=== PATIENT | female | born 1985 | race Caucasian/White ===

== ENCOUNTER → 2016-05-11 | Outpatient (CLI) | payer MEDICAID ==
--- NOTE | 2016-05-11 17:10 | US ---
Limited Pelvic Sonography (To Assess the Ovaries Only) Clinical History: 30-year-old female with a prior history of a ruptured right ovarian cyst, now prese nting for follow up. ICD-10 Diagnostic Code: N83.201. Technique: Endovaginal pelvic sonography of the ovaries was performed with color and spectral Doppler used. A cine clip was obtained through the right ovary. Comparison Study: Pelvic sonography, dated April 23, 2016. Findings: The right ovary measures 4.4 x 3.1 x 4.7 cm, and contains a 4.0 x 2.9 x 3.6 cm rounded, ane choic simple cyst. This has developed since the previous pelvic sonogram, at which time there was a d ominant though apparently involuting 1.6 x 0.4 x 0.7 cm follicle. The left ovary measures 2.8 x 3.4 x 3.4 cm, and contains a 2.9 x 2.5 x 2.8 cm anechoic cyst which has also developed. The maintenance repairman ob tained arterial and venous flow of the right ovary with a resistive index of 0.45. There is no free f luid observed. Impression: There are bilateral benign-appearing dominant cysts now occupying the ovaries, measuring up to 4.0 cm in the right ovary and 2.9 cm in the left ovary. These findings have developed since Mar.
== END ==
LOC: FIMAGING 10:58
PROVIDERS: ATTEND Midwife
DX: N83.201 Unspecified ovarian cyst, right side (principal); N83.202 Unspecified ovarian cyst, left side

== ENCOUNTER 2016-05-15 16:49 | Emergency (ER) | payer MEDICAID ==
[2016-05-15 17:00] VITALS: RESP 18; TEMP 98.1; O2SAT 95
[2016-05-15] MEDS ORDERED: ONDANSETRON 4 MG/2 ML VIAL IVP ONE (18:15)
[2016-05-15] MEDS ORDERED: HYDROmorphONE/DILAUDID 1 MG/ML SYR IVP ONE (18:15)
[2016-05-15] MEDS ORDERED: NS 1,000 ML IV ONE ×2 (18:15)
[2016-05-15 18:21] LABS: % IMMATURE GRANULYOCYTES 0.3 % (0.0-1.1); ABSOLUTE IMMATURE GRANULOCYTES 0.03 10^3/uL (0.00-0.10); ADD DIFF? NO; ADD MORPH? NO; ADD SCAN? NO; ATYPICAL LYMPHOCYTE FLAG 10 (0-99); FRAGMENT RBC FLAG 0 (0-99); HEMOGLOBIN 15.4 g/dL (12.6-16.3); LEFT SHIFT FLG 0 (0-99); LIPEMIA HEMOLYSIS FLAG 90 (0-99); MEAN CELL HEMOGLOBIN 31.8 pg (27.9-34.1); MEAN CELL HEMOGLOBIN CONCENTR. 34.2 g/dL (32.4-36.7); MEAN PLATELET VOLUME 9.2 fL (8.7-11.7); PLATELET CLUMPS FLAG 0 (0-99); PLATELET COUNT 247 10^3/uL (150-400); RED BLOOD CELL COUNT 4.84 10^6/uL (4.18-5.33); RED CELL DISTRIBUTION WIDTH 12.6 % (11.5-15.2)
[2016-05-15 18:35] LABS: ANION GAP 10 mEq/L (8-16); CALCIUM 9.5 mg/dL (8.5-10.4); CARBON DIOXIDE 25 mEq/l (22-31); CHLORIDE 104 mEq/L (97-110); CREATININE 0.8 mg/dL (0.6-1.0); GLOMERULAR FILTRATION RATE > 60; GLUCOSE 72 mg/dL (70-100); POTASSIUM 4.2 mEq/L (3.5-5.2); SODIUM 139 mEq/L (134-144)
--- NOTE | 2016-05-15 18:51 | EDPHY ---
H & P Stated Complaint: pelvic pain seen in [facility] for same/still painful Time Seen by Provider: 05/15/16 17:46 HPI/ROS: CHIEF COMPLAINT: Abdominal pain HISTORY OF PRESENT ILLNESS: 30 year old female presents to the emergency department complaining of lower bilateral abdominal cramping that started 4 days ago. Patient was seen for right lower abdominal pain last month and diagnosed with a ruptured ovarian cyst, 2 weeks later she was treated for urinary tract infection. Patient states last night her cramping got significantly worse with stabbing pains. She developed nausea and vomiting last night due to the pain. She denies urinary frequency, urgency or dysuria. Patient states that her IUD was moved 2 weeks ago. Patient denies vaginal discharge, she states she is not sexually active. REVIEW OF SYSTEMS: A comprehensive 10 point review of systems is otherwise negative aside from elements mentioned in the history of present illness. Source: Patient Exam Limitations: No limitations - Personal History LMP (Females 10-55): IUD In Place Current Tetanus/Diphtheria Vaccine: Yes Tetanus Vaccine Date: 2010 - Medical/Surgical History Hx Asthma: No Hx Chronic Respiratory Disease: No Hx Diabetes: No Hx Cardiac Disease: No Hx Renal Disease: No Hx Cirrhosis: No Hx Alcoholism: No Hx HIV/AIDS: No Hx Splenectomy or Spleen Trauma: No Other PMH: anxiety, bone marrow graft, tonsillectomy, ovarian cyst - Social History Smoking Status: Never smoked - Physical Exam Exam: Physical Exam Gen: Alert and Oriented, tearful HEENT: PERRL, moist mucous membranes NECK: no meningismus CV: regular rate and regular rhythm PULM: CTAB, no wheezes ABDOMEN: soft, diffuse lower abdominal tenderness to palpation, no guarding, no peritoneal signs, BS present BACK: No CVA tenderness NEURO: Neurologically grossly intact EXTREMITIES: normal appearing SKIN: no rash or break in skin on exposed skin PSYCH: answers questions appropriately. Constitutional: Initial Vital Signs Temperature (C) 36.7 C 05/15/16 16:58 Heart Rate 88 05/15/16 16:58 Respiratory Rate 18 05/15/16 16:58 Blood Pressure 115/65 05/15/16 16:58 O2 Sat (%) 95 05/15/16 16:58 O2 Delivery Mode Room Air Allergies/Adverse Reactions: acetaminophen [From Tylenol Cold M-S Severe Daytim] Allergy (Verified 04/03/16 20:35) amoxicillin [Amoxicillin] Allergy (Verified 04/03/16 20:35) aspirin [Aspirin] Allergy (Verified 04/03/16 20:35) dexchlorpheniramine [Dexchlorpheniramine] Allergy (Verified 04/03/16 20:35) dextromethorphan HBr [From Tylenol Cold M-S Severe Daytim] Allergy (Verified 10/12 20:35) diphenhydramine HCl [From Benadryl] Allergy (Verified 04/03/16 20:35) erythromycin base [Erythromycin Base] Allergy (Verified 04/03/16 20:35) guaifenesin [From Tylenol Cold M-S Severe Daytim] Allergy (Verified 04/03/16 20: 35) ibuprofen [From Advil] Allergy (Verified 04/03/16 20:35) mushroom Allergy (Verified 04/03/16 20:35) phenylephrine HCl [From Tylenol Cold M-S Severe Daytim] Allergy (Verified 20:35) pseudoephedrine Allergy (Verified 04/03/16 20:35) pseudoephedrine HCl [From Sudafed] Allergy (Verified 04/03/16 20:35) Sulfa (Sulfonamide Antibiotics) Allergy (Verified 04/03/16 20:35) METHSCOLOLAMINE Allergy (Uncoded 08/08/10 13:30) Home Medications: Medication Instructions Recorded CLONAZEPAM 04/03/16 Dicyclomine 04/23/16 Doxycycline Hyclate 100 mg PO BID #14 tab 04/23/16 Promethazine HCl 04/23/16 Dicyclomine 05/15/16 Ondansetron Odt [Zofran Odt] 4 mg PO Q6-8PRN PRN #8 tab 05/15/16 Oxycodone HCl [Roxicodone] 5 mg PO Q6-8PRN PRN #10 tablet 05/15/16 Medical Decision Making - Diagnostics Imaging: Pelvic ultrasound IMPRESSION: 1. Interval rupture of a left ovarian follicle cyst, with moderate associated peritoneal free fluid. 2. Persistent large simple right ovarian follicle cyst. 3. Low-lying intrauterine device. Results called to Alex Hoff PA-C, at 8:00 PM. Dictated By: Larry Salazar MD ED Course/Re-evaluation: IV established, CBC, chemistry panel, urinalysis and pelvic ultrasound ordered. Patient is given 1 mg of Dilaudid IV and 4 mg of Zofran for nausea. Patient has a normal CBC, normal chemistry panel. Urinalysis is unremarkable, she is not . Pelvic ultrasound shows a right ovarian cyst similar in size to 3 days ago and the left ovarian cyst that was 3 days ago seen is now gone and she has trace free fluid in her pelvis. Patient's pain is likely due to a ruptured ovarian cyst. I have recommended heating pad, rest. She has been discharged with a prescription for oxycodone and Zofran. She agrees to follow up with her OBGYN for re-evaluation. She is given return precautions for any fevers, pain that is not controlled, any new symptoms or concerns. Differential Diagnosis: Diagnosis considered but not limited to appendicitis, pelvic inflammatory disease, urinary tract infection, pyelonephritis, STD, ovarian cyst, ectopic - Data Points Laboratory Results: Laboratory Results 05/15/16 18:05 05/15/16 18:05 05/15/16 05/15/16 20:00 18:05 WBC 10.34 H 10^3/uL (3.80-9.50) RBC 4.84 10^6/uL (4.18-5.33) Hgb 15.4 g/dL (12.6-16.3) Hct 45.0 % (38.0-47.0) MCV 93.0 fL (81.5-99.8) MCH 31.8 pg (27.9-34.1) MCHC 34.2 g/dL (32.4-36.7) RDW 12.6 % (11.5-15.2) Plt Count 247 10^3/uL (150-400) MPV 9.2 fL (8.7-11.7) Neut % (Auto) 63.7 % (39.3-74.2) Lymph % (Auto) 28.0 % (15.0-45.0) [place] % (Auto) 5.5 % (4.5-13.0) Eos % (Auto) 1.8 % (0.6-7.6) Baso % (Auto) 0.7 % (0.3-1.7) Nucleat RBC Rel Count 0.0 % (0.0-0.2) Absolute Neuts (auto) 6.58 H 10^3/uL (1.70-6.50) Absolute Lymphs (auto) 2.90 10^3/uL (1.00-3.00) Absolute Monos (auto) 0.57 10^3/uL (0.30-0.80) Absolute Eos (auto) 0.19 10^3/uL (0.03-0.40) Absolute Basos (auto) 0.07 10^3/uL (0.02-0.10) Absolute Nucleated RBC 0.00 10^3/uL (0-0.01) Immature Gran % 0.3 % (0.0-1.1) Immature Gran # 0.03 10^3/uL (0.00-0.10) Sodium 139 mEq/L (134-144) Potassium 4.2 mEq/L (3.5-5.2) Chloride 104 mEq/L (97-110) Carbon Dioxide 25 mEq/l (22-31) Anion Gap 10 mEq/L (8-16) BUN 8 mg/dL (7-23) Creatinine 0.8 mg/dL (0.6-1.0) Estimated GFR > 60 Glucose 72 mg/dL (70-100) Calcium 9.5 mg/dL (8.5-10.4) Beta HCG, Qual NEGATIVE Urine Color YELLOW Urine Appearance CLEAR Urine pH 5.0 (5.0-7.5) Ur Specific [place] 1.008 (1.002-1.030) Urine Protein NEGATIVE (NEGATIVE) Urine Ketones 1+ H (NEGATIVE) Urine Blood NEGATIVE (NEGATIVE) Urine Nitrate NEGATIVE (NEGATIVE) Urine Bilirubin NEGATIVE (NEGATIVE) Urine Urobilinogen NEGATIVE EU (0.2-1.0) Ur Leukocyte Esterase NEGATIVE (NEGATIVE) Ur Culture Indicated? NOT INDICATED (NI) Urine Glucose NEGATIVE (NEGATIVE) Medications Given: Discontinued Medications Hydromorphone HCl (Dilaudid) 1 mg IVP EDNOW ONE Stop: 05/15/16 18:16 Last Admin: 05/15/16 18:31 Dose: 1 mg Sodium Chloride (Ns) 1,000 mls @ 0 mls/hr IV ONCE ONE PRN Reason: Wide Open Stop: 05/15/16 18:16 Last Admin: 05/15/16 18:31 Dose: 1,000 mls Sodium Chloride (Ns) 1,000 mls @ 0 mls/hr IV ONCE ONE PRN Reason: Wide Open Stop: 05/15/16 18:16 Last Admin: 05/15/16 20:10 Dose: 1,000 mls Ondansetron HCl (Zofran) 4 mg IVP EDNOW ONE Stop: 05/15/16 18:16 Last Admin: 05/15/16 18:31 Dose: 4 mg Departure - Departure Disposition: Home, Routine, Self-Care Clinical Impression: Ovarian cyst Qualifiers: Laterality: bilateral Qualifier Code: (N83.201) Unspecified ovarian cyst, right side Condition: Good Instructions: Ovarian Cyst (ED) Additional Instructions: Warm compresses to your abdomen. Continue taking your medication as prescribed. Take 5 mg of oxycodone every 6-8 hours as needed for severe pain, take Zofran as needed for nausea. Follow-up with your OBGYN in the next 3-5 days for re-evaluation. Return to the emergency department for fevers, pain that is not controlled, any new questions or concerns. Referrals: Danna Hu MD [Primary Care Provider] - As per Instructions Stand Alone Forms: School Excuse Prescriptions: Oxycodone HCl [Roxicodone] 5 mg PO Q6-8PRN PRN #10 tablet PRN Reason: Pain, Moderate Ondansetron Odt [Zofran Odt] 4 mg PO Q6-8PRN PRN #8 tab PRN Reason: Nausea/Vomiting, Can'T Take Po
--- NOTE | 2016-05-15 20:06 | US ---
Pelvic sonogram, complete. May 15, 2016 HISTORY: Follow-up ovarian cyst. Pain. Comparison examination: May 11, 2016. TECHNIQUE: Transabdominal and endovaginal. Endovaginal imaging was performed to further evaluate the ovaries. FINDINGS: Transabdominal examination: Cystic changes are present in the right adnexa. Uterus is midline. Endovaginal study: The endometrium is thin at 3.7 mm. An intrauterine device resides within the lower uterine segment, distal tip 3 cm away from the uterine fundus. There is a small amount of endometria l fluid. A 1.1 cm posterior myometrial fibroid is again noted. Adnexal evaluation demonstrates moderate peritoneal free fluid bilaterally. There is a large benign-a ppearing right ovarian follicle cyst measuring 4.5 cm in size. The previously identified large left o varian follicle cyst has ruptured, with the left ovary now containing only a small cyst. Patent arter ial blood flow is documented to both ovaries on Doppler investigation. IMPRESSION: 1. Interval rupture of a left ovarian follicle cyst, with moderate associated peritoneal free fluid. 2. Persistent large simple right ovarian follicle cyst. 3. Low-lying intrauterine device. Results called to Alex Hoff PA-C, at 8:00 PM.
[2016-05-15 20:21] LABS: COLOR YELLOW; LEUKOCYTE ESTERASE,URINE NEGATIVE (NEGATIVE); NITRITE,URINE NEGATIVE (NEGATIVE)
[2016-05-15 21:18] VITALS: BP 126/74; PULSE 78
== END 2016-05-15 21:14 | disposition home or self-care (01) ==
DX: N83.201 Unspecified ovarian cyst, right side (principal)
CPT/HCPCS: 96374; J1170; J2405

== ENCOUNTER 2016-05-17 09:20 | Emergency (ER) | payer MEDICAID ==
[2016-05-17 09:26] VITALS: TEMP 97.7
[2016-05-17] MEDS ORDERED: ONDANSETRON 4 MG/2 ML VIAL ONE (09:38)
[2016-05-17] MEDS ORDERED: NS 1,000 ML IV ONE ×2 (09:39→10:02)
[2016-05-17] MEDS ORDERED: ONDANSETRON 4 MG/2 ML VIAL IVP ONE ×2 (09:39→10:02)
[2016-05-17 10:07] LABS: % IMMATURE GRANULYOCYTES 0.2 % (0.0-1.1); ABSOLUTE IMMATURE GRANULOCYTES 0.01 10^3/uL (0.00-0.10); ADD DIFF? NO; ADD MORPH? NO; ADD SCAN? NO; ATYPICAL LYMPHOCYTE FLAG 20 (0-99); FRAGMENT RBC FLAG 0 (0-99); HEMATOCRIT 40.1 % (38.0-47.0); HEMOGLOBIN 14.1 g/dL (12.6-16.3); LEFT SHIFT FLG 0 (0-99); LIPEMIA HEMOLYSIS FLAG 90 (0-99); MEAN CELL HEMOGLOBIN 32.2 pg (27.9-34.1); MEAN CELL HEMOGLOBIN CONCENTR. 35.2 g/dL (32.4-36.7); MEAN CELL VOLUME 91.6 fL (81.5-99.8); MEAN PLATELET VOLUME 9.6 fL (8.7-11.7); PLATELET CLUMPS FLAG 0 (0-99); PLATELET COUNT 227 10^3/uL (150-400); RED BLOOD CELL COUNT 4.38 10^6/uL (4.18-5.33); RED CELL DISTRIBUTION WIDTH 12.4 % (11.5-15.2)
[2016-05-17 10:17] LABS: APTT 27.8 SEC (23.0-38.0); INR 1.06 (0.83-1.16); PROTIME(PATIENT) 13.7 SEC (12.0-15.0)
[2016-05-17 10:20] LABS: ALANINE AMINOTRANSFERASE 28 IU/L (9-52); ALBUMIN 3.8 g/dL (3.5-5.0); ALKALINE PHOSPHATASE 44 IU/L (38-126); ANION GAP 9 mEq/L (8-16); ASPARTATE AMINOTRANSFERASE 18 IU/L (14-46); BILIRUBIN,TOTAL 0.4 mg/dL (0.1-1.4); BILIRUBIN-CONJUGATED 0.1 mg/dL (0.0-0.5); BILIRUBIN-UNCONJUGATED 0.3 mg/dL (0.0-1.1); CALCIUM 9.1 mg/dL (8.5-10.4); CARBON DIOXIDE 23 mEq/l (22-31); CHLORIDE 107 mEq/L (97-110); CREATININE 0.8 mg/dL (0.6-1.0); GLOMERULAR FILTRATION RATE > 60; GLUCOSE 86 mg/dL (70-100); POTASSIUM 4.1 mEq/L (3.5-5.2); SODIUM 139 mEq/L (134-144); TOTAL PROTEIN 6.7 g/dL (6.3-8.2)
--- NOTE | 2016-05-17 10:38 | EDPHY ---
H & P Smoking Status: Never smoked Constitutional: Initial Vital Signs Temperature (C) 36.5 C 05/17/16 09:23 Heart Rate 73 05/17/16 09:23 Respiratory Rate 16 05/17/16 09:23 Blood Pressure 104/62 05/17/16 09:23 O2 Sat (%) 98 05/17/16 09:23 O2 Delivery Mode Room Air Allergies/Adverse Reactions: acetaminophen [From Tylenol Cold M-S Severe Daytim] Allergy (Verified 04/03/16 20:35) amoxicillin [Amoxicillin] Allergy (Verified 04/03/16 20:35) aspirin [Aspirin] Allergy (Verified 04/03/16 20:35) dexchlorpheniramine [Dexchlorpheniramine] Allergy (Verified 04/03/16 20:35) dextromethorphan HBr [From Tylenol Cold M-S Severe Daytim] Allergy (Verified 10/12 20:35) diphenhydramine HCl [From Benadryl] Allergy (Verified 04/03/16 20:35) erythromycin base [Erythromycin Base] Allergy (Verified 04/03/16 20:35) guaifenesin [From Tylenol Cold M-S Severe Daytim] Allergy (Verified 04/03/16 20: 35) ibuprofen [From Advil] Allergy (Verified 04/03/16 20:35) mushroom Allergy (Verified 04/03/16 20:35) phenylephrine HCl [From Tylenol Cold M-S Severe Daytim] Allergy (Verified 20:35) pseudoephedrine Allergy (Verified 04/03/16 20:35) pseudoephedrine HCl [From Sudafed] Allergy (Verified 04/03/16 20:35) Sulfa (Sulfonamide Antibiotics) Allergy (Verified 04/03/16 20:35) METHSCOLOLAMINE Allergy (Uncoded 08/08/10 13:30) Home Medications: Medication Instructions Recorded CLONAZEPAM 04/03/16 Dicyclomine 04/23/16 Doxycycline Hyclate 100 mg PO BID #14 tab 04/23/16 Promethazine HCl 04/23/16 Dicyclomine 05/15/16 Ondansetron Odt [Zofran Odt] 4 mg PO Q6-8PRN PRN #8 tab 05/15/16 Oxycodone HCl [Roxicodone] 5 mg PO Q6-8PRN PRN #10 tablet 05/15/16 Medical Decision Making ED Course/Re-evaluation: The patient was evaluated and managed by the physician's conventions assistant. My cosignature indicates that I reviewed the chart and I agree with the findings and plan of care as documented. I am the secondary supervising physician. - Data Points Laboratory Results: Laboratory Results 05/17/16 09:50 05/17/16 09:50 05/17/16 09:50 WBC 5.64 10^3/uL (3.80-9.50) RBC 4.38 10^6/uL (4.18-5.33) Hgb 14.1 g/dL (12.6-16.3) Hct 40.1 % (38.0-47.0) MCV 91.6 fL (81.5-99.8) MCH 32.2 pg (27.9-34.1) MCHC 35.2 g/dL (32.4-36.7) RDW 12.4 % (11.5-15.2) Plt Count 227 10^3/uL (150-400) MPV 9.6 fL (8.7-11.7) Neut % (Auto) 44.9 % (39.3-74.2) Lymph % (Auto) 41.7 % (15.0-45.0) [place] % (Auto) 8.9 % (4.5-13.0) Eos % (Auto) 3.4 % (0.6-7.6) Baso % (Auto) 0.9 % (0.3-1.7) Nucleat RBC Rel Count 0.0 % (0.0-0.2) Absolute Neuts (auto) 2.54 10^3/uL (1.70-6.50) Absolute Lymphs (auto) 2.35 10^3/uL (1.00-3.00) Absolute Monos (auto) 0.50 10^3/uL (0.30-0.80) Absolute Eos (auto) 0.19 10^3/uL (0.03-0.40) Absolute Basos (auto) 0.05 10^3/uL (0.02-0.10) Absolute Nucleated RBC 0.00 10^3/uL (0-0.01) Immature Gran % 0.2 % (0.0-1.1) Immature Gran # 0.01 10^3/uL (0.00-0.10) PT 13.7 SEC (12.0-15.0) INR 1.06 (0.83-1.16) APTT 27.8 SEC (23.0-38.0) Sodium 139 mEq/L (134-144) Potassium 4.1 mEq/L (3.5-5.2) Chloride 107 mEq/L (97-110) Carbon Dioxide 23 mEq/l (22-31) Anion Gap 9 mEq/L (8-16) BUN 7 mg/dL (7-23) Creatinine 0.8 mg/dL (0.6-1.0) Estimated GFR > 60 Glucose 86 mg/dL (70-100) Calcium 9.1 mg/dL (8.5-10.4) Total Bilirubin 0.4 mg/dL (0.1-1.4) Conjugated Bilirubin 0.1 mg/dL (0.0-0.5) Unconjugated Bilirubin 0.3 mg/dL (0.0-1.1) AST 18 IU/L (14-46) ALT 28 IU/L (9-52) Alkaline Phosphatase 44 IU/L (38-126) Total Protein 6.7 g/dL (6.3-8.2) Albumin 3.8 g/dL (3.5-5.0) Lipase 69.0 IU/L (23-300) Beta HCG, Qual NEGATIVE Medications Given: Discontinued Medications Sodium Chloride (Ns) 1,000 mls @ 0 mls/hr IV ONCE ONE PRN Reason: Wide Open Stop: 05/17/16 09:40 Last Admin: 05/17/16 09:56 Dose: 1,000 mls Sodium Chloride (Ns) 1,000 mls @ 0 mls/hr IV ONCE ONE PRN Reason: Wide Open Stop: 05/17/16 10:03 Last Admin: 05/17/16 10:19 Dose: 1,000 mls Morphine Sulfate (Morphine) 6 mg IVP EDNOW ONE Stop: 05/17/16 10:03 Last Admin: 05/17/16 10:19 Dose: 6 mg Ondansetron HCl (Zofran) 4 mg IVP EDNOW ONE Stop: 05/17/16 09:40 Last Admin: 05/17/16 09:56 Dose: 4 mg Ondansetron HCl (Zofran) 4 mg IVP EDNOW ONE Stop: 05/17/16 10:03 Last Admin: 05/17/16 10:19 Dose: 4 mg
--- NOTE | 2016-05-17 10:54 | EDPHY ---
H & P Stated Complaint: abd pain N/V/D w/ ovarian cyst Source: Patient Exam Limitations: No limitations - Personal History LMP (Females 10-55): IUD In Place Current Tetanus/Diphtheria Vaccine: Unsure Current Tetanus Diphtheria and Acellular Pertussis (TDAP): Unsure Tetanus Vaccine Date: 2010 - Medical/Surgical History Hx Asthma: No Hx Chronic Respiratory Disease: No Hx Diabetes: No Hx Cardiac Disease: No Hx Renal Disease: No Hx Cirrhosis: No Hx Alcoholism: No Hx HIV/AIDS: No Hx Splenectomy or Spleen Trauma: No Other PMH: anxiety, bone marrow graft, tonsillectomy, ovarian cyst - Social History Smoking Status: Never smoked HPI/ROS: CHIEF COMPLAINT: Pelvic pain, abdominal pain, vaginal bleeding. HISTORY OF PRESENT ILLNESS: Several weeks of intermittent abdominal pain with vaginal bleeding as well. Over the past 2 days she has had worsening pelvic pain, mild vaginal bleeding and some new vaginal discharge since her visit of 2 days ago. No fever or chills. Some nausea but no vomiting. Vaginal bleeding is mild. Discharge is mild and not malodorous. She has no dyspareunia she has not had any intercourse recently. She has no vaginal pain. She has been diagnosed with ovarian cyst with rupture. She was actually at the die cast operator' s office today, when they recommended that she come down to to the emergency department for her worsening pain. She has no syncope. No chest pain or shortness of breath. No other associated complaints or modifying factors. REVIEW OF SYSTEMS: Ten systems reviewed and are negative unless otherwise noted in the HPI EXAMINATION: General Appearance: Alert, no distress Head: normocephalic, atraumatic Eyes: Pupils equal and round, no conjunctival pallor or injection ENT, Mouth: Mucous membranes moist Neck: Normal inspection, supple, non-tender Respiratory: Lungs are clear to auscultation Cardiovascular: Regular rate and rhythm Gastrointestinal: Abdomen is soft With mild tenderness in the lower quadrants. No point tenderness. No tympany. No rigidity. Non-acute abdomen. Neurological: A&O, nonfocal, normal gait Skin: Warm and dry, no rash Extremities: Nontender, no pedal edema Psychiatric: Mood and affect normal DIFFERENTIAL DIAGNOSES: Including but not limited to Ruptured ovarian cyst, ovarian cyst, ovarian torsion, UTI, cystitis MDM: ongoing abdominal pelvic pain in a patient with diagnosis ovarian cyst x3 recent visits. She has a benign abdomen with some generalized tenderness. She was at her die cast operator's office today, but they declined to see her given her level of pain is centered to our office. Pelvic ultrasound is pending, as are her labs. She is in no acute distress. 12:20 p.m. contacted by radiologist notified of the pelvic ultrasound. The left ruptured ovarian cyst persists without change. There is pelvic fluid that is unchanged. The right-sided ovarian cyst is unchanged. No torsion. No new findings. I will consult Ob for the patient to be seen in the emergency department. 1:35 p.m. I have spoken with Dr. Tapia for consultation. She requested a pelvic setup at bedside. She will come evaluate the patient in the emergency department shortly 2:40 PM Patient was evaluated by Dr. Tapia. After further investigation, the patient actually has been seen by someone in Dr. Brown's office, although not Dr. Brown herself. The 2 physicians discussed in between them they determined that the patient will be evaluated by the office of Dr. Brown. the patient was offered an appointment at 4:[address] Brown, but she declined because she says that her pain was Unbearable. She specifically requested to be seen here in the emergency department. I discussed this with Dr. Brown, and she says that she be happy to evaluate the patient in the emergency department, but it would be after clinic. This would be approximately 4:35 p.m. Patient was informed of this and has received multiple doses of pain medication in the interim. She remains in no acute distress. She has been on the phone repeatedly when I attempted to examine her , as well as texting. 5:[address] Brown is at bedside at this time. She is evaluating the patient personally. Awaiting her orders at this time. 5:[address] Brown has evaluated the patient in the ER. She has performed a removal of the IUD with written consent. The patient is feeling better. Discharged home with oral pain medication and instructed follow up with doctor next week in the office. Return to the ER for worsening pain or bleeding. Patient is comfortable with this plan and discharged home in stable condition. HPI addendum : The patient was also requesting results from an MRI she had on the right lower extremity. This was not ordered by me, but she has a follow-up with the primary care physician for this. She has no complaints that area but just once the results. We will provide the results to her, and she is to follow up with her primary care physician for this. As she is not here for this complaint, and since I did not order this image, I informed her that I would not be responsible for what was in the imaging results. She was comfortable with this plan so I did discuss the findings with her. I did recommend she follow up with primary care physician to discuss further, and she agreed to do so. SUPERVISION: Patient was evaluated in conjunction with the supervising physician. Please see their note for details. (Irvin Ferrer) Constitutional: Initial Vital Signs Temperature (C) 97.7 F 05/17/16 09:23 Heart Rate 73 05/17/16 09:23 Respiratory Rate 16 05/17/16 09:23 Blood Pressure 104/62 05/17/16 09:23 O2 Sat (%) 98 05/17/16 09:23 O2 Delivery Mode Room Air Allergies/Adverse Reactions: acetaminophen [From Tylenol Cold M-S Severe Daytim] Allergy (Verified 04/03/16 20:35) amoxicillin [Amoxicillin] Allergy (Verified 04/03/16 20:35) aspirin [Aspirin] Allergy (Verified 04/03/16 20:35) dexchlorpheniramine [Dexchlorpheniramine] Allergy (Verified 04/03/16 20:35) dextromethorphan HBr [From Tylenol Cold M-S Severe Daytim] Allergy (Verified 10/12 20:35) diphenhydramine HCl [From Benadryl] Allergy (Verified 04/03/16 20:35) erythromycin base [Erythromycin Base] Allergy (Verified 04/03/16 20:35) guaifenesin [From Tylenol Cold M-S Severe Daytim] Allergy (Verified 04/03/16 20: 35) ibuprofen [From Advil] Allergy (Verified 04/03/16 20:35) mushroom Allergy (Verified 04/03/16 20:35) phenylephrine HCl [From Tylenol Cold M-S Severe Daytim] Allergy (Verified 20:35) pseudoephedrine Allergy (Verified 04/03/16 20:35) pseudoephedrine HCl [From Sudafed] Allergy (Verified 04/03/16 20:35) Sulfa (Sulfonamide Antibiotics) Allergy (Verified 04/03/16 20:35) METHSCOLOLAMINE Allergy (Uncoded 08/08/10 13:30) Home Medications: Medication Instructions Recorded CLONAZEPAM 04/03/16 Dicyclomine 04/23/16 Doxycycline Hyclate 100 mg PO BID #14 tab 04/23/16 Promethazine HCl 04/23/16 Dicyclomine 05/15/16 Ondansetron Odt [Zofran Odt] 4 mg PO Q6-8PRN PRN #8 tab 05/15/16 Oxycodone HCl [Roxicodone] 5 mg PO Q6-8PRN PRN #10 tablet 05/15/16 Oxycodone HCl [Roxicodone] 5 mg PO Q8 PRN #12 tablet 05/17/16 Medical Decision Making ED Course/Re-evaluation: The patient was evaluated and managed by the physician's vet assistant. My cosignature indicates that I reviewed the chart and I agree with the findings and plan of care as documented. I am the secondary supervising physician. ( Kath Olivares) - Data Points Laboratory Results: Laboratory Results 05/17/16 09:50 05/17/16 09:50 05/17/16 05/17/16 10:50 09:50 WBC 5.64 10^3/uL (3.80-9.50) RBC 4.38 10^6/uL (4.18-5.33) Hgb 14.1 g/dL (12.6-16.3) Hct 40.1 % (38.0-47.0) MCV 91.6 fL (81.5-99.8) MCH 32.2 pg (27.9-34.1) MCHC 35.2 g/dL (32.4-36.7) RDW 12.4 % (11.5-15.2) Plt Count 227 10^3/uL (150-400) MPV 9.6 fL (8.7-11.7) Neut % (Auto) 44.9 % (39.3-74.2) Lymph % (Auto) 41.7 % (15.0-45.0) [place] % (Auto) 8.9 % (4.5-13.0) Eos % (Auto) 3.4 % (0.6-7.6) Baso % (Auto) 0.9 % (0.3-1.7) Nucleat RBC Rel Count 0.0 % (0.0-0.2) Absolute Neuts (auto) 2.54 10^3/uL (1.70-6.50) Absolute Lymphs (auto) 2.35 10^3/uL (1.00-3.00) Absolute Monos (auto) 0.50 10^3/uL (0.30-0.80) Absolute Eos (auto) 0.19 10^3/uL (0.03-0.40) Absolute Basos (auto) 0.05 10^3/uL (0.02-0.10) Absolute Nucleated RBC 0.00 10^3/uL (0-0.01) Immature Gran % 0.2 % (0.0-1.1) Immature Gran # 0.01 10^3/uL (0.00-0.10) PT 13.7 SEC (12.0-15.0) INR 1.06 (0.83-1.16) APTT 27.8 SEC (23.0-38.0) Sodium 139 mEq/L (134-144) Potassium 4.1 mEq/L (3.5-5.2) Chloride 107 mEq/L (97-110) Carbon Dioxide 23 mEq/l (22-31) Anion Gap 9 mEq/L (8-16) BUN 7 mg/dL (7-23) Creatinine 0.8 mg/dL (0.6-1.0) Estimated GFR > 60 Glucose 86 mg/dL (70-100) Calcium 9.1 mg/dL (8.5-10.4) Total Bilirubin 0.4 mg/dL (0.1-1.4) Conjugated Bilirubin 0.1 mg/dL (0.0-0.5) Unconjugated Bilirubin 0.3 mg/dL (0.0-1.1) AST 18 IU/L (14-46) ALT 28 IU/L (9-52) Alkaline Phosphatase 44 IU/L (38-126) Total Protein 6.7 g/dL (6.3-8.2) Albumin 3.8 g/dL (3.5-5.0) Lipase 69.0 IU/L (23-300) Beta HCG, Qual NEGATIVE Urine Color COLORLESS Urine Appearance CLEAR Urine pH 6.0 (5.0-7.5) Ur Specific [place] 1.003 (1.002-1.030) Urine Protein NEGATIVE (NEGATIVE) Urine Ketones NEGATIVE (NEGATIVE) Urine Blood NEGATIVE (NEGATIVE) Urine Nitrate NEGATIVE (NEGATIVE) Urine Bilirubin NEGATIVE (NEGATIVE) Urine Urobilinogen NEGATIVE EU (0.2-1.0) Ur Leukocyte Esterase NEGATIVE (NEGATIVE) Ur Culture Indicated? NOT INDICATED (NI) Urine Glucose NEGATIVE (NEGATIVE) Medications Given: Discontinued Medications Sodium Chloride (Ns) 1,000 mls @ 0 mls/hr IV ONCE ONE PRN Reason: Wide Open Stop: 05/17/16 09:40 Last Admin: 05/17/16 09:56 Dose: 1,000 mls Sodium Chloride (Ns) 1,000 mls @ 0 mls/hr IV ONCE ONE PRN Reason: Wide Open Stop: 05/17/16 10:03 Last Admin: 05/17/16 10:19 Dose: 1,000 mls Morphine Sulfate (Morphine) 6 mg IVP EDNOW ONE Stop: 05/17/16 10:03 Last Admin: 05/17/16 10:19 Dose: 6 mg Morphine Sulfate (Morphine) 6 mg IVP Q1HR ONE Stop: 05/17/16 12:41 Last Admin: 05/17/16 12:56 Dose: 6 mg Ondansetron HCl (Zofran) 4 mg IVP EDNOW ONE Stop: 05/17/16 09:40 Last Admin: 05/17/16 09:56 Dose: 4 mg Ondansetron HCl (Zofran) 4 mg IVP EDNOW ONE Stop: 05/17/16 10:03 Last Admin: 05/17/16 10:19 Dose: 4 mg Departure - Departure Disposition: Home, Routine, Self-Care Clinical Impression: Ruptured ovarian cyst, Pelvic pain Uterine fibroid Qualifiers: Uterine leiomyoma location: unspecified location Qualifier Code: (D25.9) Leiomyoma of uterus, unspecified IUD complication Qualifiers: Device complication type: mechanical Mechanical complication type: displacement Encounter type: initial encounter Qualifier Code: (T83.32XA) Displacement of intrauterine contraceptive device, initial encounter Condition: Good Instructions: Ovarian Cyst (ED), Pelvic Pain in Women (ED) Referrals: Hu,Danna S, MD [Primary Care Provider] - As per Instructions Prescriptions: Oxycodone HCl [Roxicodone] 5 mg PO Q8 PRN #12 tablet PRN Reason: Pain, Mild
[2016-05-17 11:06] LABS: COLOR COLORLESS; LEUKOCYTE ESTERASE,URINE NEGATIVE (NEGATIVE); NITRITE,URINE NEGATIVE (NEGATIVE)
--- NOTE | 2016-05-17 12:31 | US ---
"Complete Pelvic Sonography (Transabdominal and Endovaginal) Clinical History: 30-year-old female with a history of ovarian cysts, complaining of pelvic pain. The patient had a negative qualitative beta-hCG test this morning. TECHNIQUE: A curvilinear 5 MHz transducer was initially used to sonographically evaluate the pelvis, although the urinary bladder was only partially distended. To better assess the uterine architecture and the adnexal structures, endovaginal pelvic sonography was also performed. Color and spectral Dopp ler are used. Cine clips were acquired through the uterus. A coronal reconstructed image through the endometrium was also provided. COMPARISON STUDY: Pelvic sonography, dated May 15, 2016. FINDINGS: Transabdominal Pelvic Sonography: The uterus is retroverted and retroflexed, measuring 8.3 x 3.9 x 5. 3 cm (volume of 90 mL). There is some free fluid in the pelvic cul-de-sac. The right ovary contains a simple cyst, and the left ovary contains a complex cyst, each of which will be better assessed endov aginally. Endovaginal Pelvic Sonography: There is some fluid in the endocervical canal. The intrauterine device is appears to be slightly low-lying, terminating in the mid uterine body, however stable compared to the previous study 2 days ago. The right ovary measures 3.7 x 3.4 x 4.5 cm, and contains a 4.4 x 3.0 x 3.9 cm simple anechoic cyst. On the study 2 days ago this measured 4.5 x 3.9 x 3.3 cm. Intraovaria n arterial and venous flow is documented with a resistive index of 0.61. The left ovary measures 3.9 x 2.4 x 3.3 cm, and contains a complex cyst with partial septation and/or some coalescent nonvascular fibrinous material measuring 3.4 x 2.1 x 2.4 cm. Intraovarian arterial and venous flow is documented , with a resistive index of 0.56. There is free fluid in the adnexal regions and cul-de-sac. Incident al note is made of an 1.4 x 0.9 x 1.1 cm intramural fundal fibroid. IMPRESSION: 1. Retroverted. retroflexed uterus. 2. The intrauterine device is low-lying, however stable from previous imaging studies. 3. There is a 1.3 cm fundal intramural fibroid. 4. There is a stable 4.4 cm simple appearing right ovarian cyst. and there is a 3.4 cm complex hemorr hagic left ovarian cyst with free fluid but no torsion. Results were discussed with Irvin Ferrer PA-C. A Document Only message has been documented for Irvin Ferrer in the [employer] | Critical Re sult system on 05/17/2016 12:12, Message ID [id number]."
[2016-05-17 15:39] VITALS: RESP 16
[2016-05-17 18:22] VITALS: BP 124/77; PULSE 72; O2SAT 97
[2016-05-17] MEDS ORDERED: ONDANSETRON 4MG PREPACK#2 BTL TAKEHOME ONE ×2 (18:25)
[2016-05-17] MEDS ORDERED: PROMETHAZINE 25MG SUPP PREPK#4 BTL TAKEHOME ONE (18:26)
[2016-05-17] MEDS ORDERED: PROMETHAZINE 25 MG PREPACK #4 BTL TAKEHOME ONE (18:28)
--- NOTE | 2016-05-17 23:02 | GCON ---
[f rep st] CONSULTATION DATE OF CONSULTATION: 05/17/2016 CHIEF COMPLAINT: Pelvic pain. HISTORY OF PRESENT ILLNESS: The patient is a 30-year-old, 1, para 0, abortus 1, female (term inated 1), with unknown last menstrual period using the Mirena IUD for control, who pr esents to the emergency room due to pelvic pain. Boyfriend. She denies any intercourse over the las t few weeks. The patient reports having pelvic pain, nausea, vomiting, diarrhea, starting around sg2015. She reports having intermittent pain since that time. She reports developing wor sening pain around May 05, for which she came to the emergency room and was diagnosed with an ov jayme cyst. She reports she was pain-free for 8 days, and then the pain recurred. She reports she h ad an appointment with our clinic at [facility] today, which she was a no-show for, and t hen she proceeded to present to the emergency room this afternoon. She reports she has been having w orsening pain over the past 2 days and a little bit of vaginal discharge. She denies any fevers or c hills. She reports some nausea but no vomiting. The vaginal discharge is mild and without any foul odor. She reports no dyspareunia but reports she has not had intercourse recently. She has no other complaints. She reports having no pain medication at home, but was taking Phenergan and Zofran occa sionally for nausea. ALLERGIES: She reports that she has allergies to aspirin, Motrin and Tylenol. REVIEW OF SYSTEMS: Negative other than what was noted in the HPI. PAST MEDICAL HISTORY: 1. Benign cyst of the femur, excision at age 10 with recurrence in the last few years. 2. Tonsillitis. 3. Headache. 4. Arrhythmia in 2005. PAST SURGICAL HISTORY: Tonsillectomy, dilation and curettage, removal of cyst in her right femur at age 10. SOCIAL HISTORY: Patient is single with a boyfriend, lives with her mother. She denies any tobacco, alcohol or drug use at this time. FAMILY HISTORY: 1. Mother with history of uterine cancer. 2. Sister with history of a large DVT. PHYSICAL EXAMINATION: VITAL SIGNS: Blood pressure 104/62, heart rate 73, respiratory rate 16, O2 sa t 98% on room air, temp 36.5 degrees Celsius. GENERAL: Well-developed, well-nourished female in no acute distress, ambulating around the room without difficulty and without any signs of distress or di scomfort. CHEST: Clear to auscultation bilaterally. No wheezes, rales, or rhonchi. CARDIOVASCULAR : Regular rate and rhythm. ABDOMEN: Soft, with mild tenderness to palpation, no peritoneal signs a nd no rebound or guarding. Normal bowel sounds present. PELVIC: External genitalia appear normal w ith no lesions or masses. Speculum exam was performed, and cervix appeared normal. GC and chlamydia culture was obtained and sent. IUD string was grasped and removed without any complications, and th e IUD was intact. An internal pelvic exam was performed with no cervical motion tenderness noted. A bdominal exam revealed a small amount of tenderness but no rebound or guarding. LABS: CBC normal with white count of 5.6, hematocrit 40, and platelets 227. Normal coagulation fact ors. Normal chemistry panel, normal lipase, and negative hCG. Negative urinalysis. An ultrasound was performed revealing a retroverted uterus. The IUD is low-lying and not located in the endometrial cavity or fundus of the uterus. There is a 1.3 fundal intramural fibroid. There is a stable 4.4 cm simple-appearing right ovarian cyst and a 3.4 cm complex hemorrhagic left ovarian cys t. No signs of torsion and no free fluid visualized on my review of images. PROCEDURE: The patient was counseled extensively regarding the malposition of her IUD, how it appear ed that it was in the lower uterine segment. Discussed that this is not normal and it needs to be re moved because it is not working, and there is a risk of with it being in the wrong location . In addition, it may be contributing to her pain. I reviewed the risks of IUD removal, to include risks of infection, bleeding, pain, and , if no other control is initiated. She, afte r much thought, agreed with the plan for removal of the IUD. The IUD was then removed by grasping th e strings, with no immediate complications. The IUD was intact. ASSESSMENT: Patient is a 30-year-old, 1, para 0, abortus 1, female with pelvic pain, ovarian cyst, and a malpositioned IUD. PLAN: 1. Patient is currently hemodynamically stable and without any signs of ovarian torsion. Her pelvic pain is likely due to a combination of her ovarian cysts as well as her malpositioned IUD. 2. Malpositioned IUD was removed easily and intact with no immediate complications. 3. Ovarian cysts: There is currently an ovarian cyst on each ovary measuring 3-4 cm, with no signs of torsion. She has no acute abdomen at this time. Will give her pain medication and have her follo w up in our clinic with a plan to re-evaluate and determine if surgery is warranted. She reports a v akhil strong family history of her sister having a large blood clot, in addition to a maternal aunt and grandmother with history of blood clotting disorder. She cannot recall the name of the disorder, bu t she has not had any personal hypercoagulability testing. Therefore, I agree it is not a good plan to start her on any hormonal ovarian suppression until she has further testing done to evaluate for t hese disorders. In the meantime, we will plan on giving her pain medication as an outpatient and hav e her follow up in the clinic for further evaluation. 4. Pain, fever and bleeding precautions were reviewed. She was advised to follow up in our clinic n ext week. /[id number]/MODL
== END 2016-05-17 18:39 | disposition home or self-care (01) ==
DX: N83.209 Unspecified ovarian cyst, unspecified side (principal); D25.9 Leiomyoma of uterus, unspecified; T83.32XA Displacement of intrauterine contraceptive device, initial encounter; Y82.8 Other medical devices associated with adverse incidents
CPT/HCPCS: 96374; J2405

== ENCOUNTER 2016-06-05 05:28 | Emergency (ER) | payer MEDICAID ==
[2016-06-05 05:33] VITALS: TEMP 97.9
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
[2016-06-05] MEDS ORDERED: NS 1,000 ML IV ONE (05:48)
[2016-06-05 06:03] VITALS: RESP 18
[2016-06-05 06:20] LABS: % IMMATURE GRANULYOCYTES 0.1 % (0.0-1.1); ABSOLUTE IMMATURE GRANULOCYTES 0.01 10^3/uL (0.00-0.10); ADD DIFF? NO; ADD MORPH? NO; ADD SCAN? NO; ATYPICAL LYMPHOCYTE FLAG 20 (0-99); FRAGMENT RBC FLAG 0 (0-99); HEMATOCRIT 42.6 % (38.0-47.0); HEMOGLOBIN 14.7 g/dL (12.6-16.3); LEFT SHIFT FLG 0 (0-99); LIPEMIA HEMOLYSIS FLAG 90 (0-99); MEAN CELL HEMOGLOBIN 32.3 pg (27.9-34.1); MEAN CELL HEMOGLOBIN CONCENTR. 34.5 g/dL (32.4-36.7); MEAN CELL VOLUME 93.6 fL (81.5-99.8); MEAN PLATELET VOLUME 9.3 fL (8.7-11.7); PLATELET CLUMPS FLAG 10 (0-99); PLATELET COUNT 259 10^3/uL (150-400); RED BLOOD CELL COUNT 4.55 10^6/uL (4.18-5.33); RED CELL DISTRIBUTION WIDTH 12.8 % (11.5-15.2)
[2016-06-05 06:24] LABS: COLOR COLORLESS; LEUKOCYTE ESTERASE,URINE NEGATIVE (NEGATIVE); NITRITE,URINE NEGATIVE (NEGATIVE)
[2016-06-05 06:50] LABS: ALANINE AMINOTRANSFERASE 35 IU/L (9-52); ALBUMIN 4.2 g/dL (3.5-5.0); ALKALINE PHOSPHATASE 53 IU/L (38-126); ANION GAP 16 mEq/L (8-16); ASPARTATE AMINOTRANSFERASE 29 IU/L (14-46); BILIRUBIN,TOTAL 0.3 mg/dL (0.1-1.4); BILIRUBIN-CONJUGATED 0.2 mg/dL (0.0-0.5); BILIRUBIN-UNCONJUGATED 0.1 mg/dL (0.0-1.1); CALCIUM 8.6 mg/dL (8.5-10.4); CARBON DIOXIDE 22 mEq/l (22-31); CHLORIDE 113 mEq/L (97-110); CREATININE 0.9 mg/dL (0.6-1.0); ETHANOL SERUM 250 mg/dL (0-10); GLOMERULAR FILTRATION RATE > 60; GLUCOSE 93 mg/dL (70-100); SODIUM 151 mEq/L (134-144); TOTAL PROTEIN 7.4 g/dL (6.3-8.2)
--- NOTE | 2016-06-05 08:17 | US ---
Ultrasound Pelvis Complete (Transabdominal and Endovaginal) History: Pelvic pain in a 30-year-old female. Technique: Transabdominal and endovaginal ultrasound images were obtained. Endovaginal images obtain ed for better evaluation of the uterine myometrium and adnexa. Color Doppler evaluation is employed f or assessment of vascularity. Comparison is made to previous pelvic ultrasound examinations May 17, 2016 May 15, 2016 and [facility] 2016. Findings: The uterus is normal in size and measures 9.2 x 4.8 x 6.0 cm. The uterus is retroverted. Th e endometrial measures 4 mm in thickness. A small fundal fibroid is again noted measuring 1.2 x 0.8 x 1.0 cm. The right ovary measures 2.9 x 2.3 x 1.7 cm and contains a complex ovarian cyst measuring 1.5 x 1.1 c m. The left ovary measures 2.7 x 2.6 x 1.7 cm and contains a complex ovarian cyst measuring 1.8 x 1.5 cm.. No adnexal masses. No free fluid is identified in the pelvis. Color and pulsed Doppler flow i s identified in both ovaries . Impression: Bilateral ovarian cysts are seen with no associated free fluid. A preliminary report was called to the Emergency Department.
[2016-06-05 09:54] VITALS: BP 100/75; PULSE 80; O2SAT 95
== END 2016-06-05 10:18 | disposition home or self-care (01) ==
LOC: EEVIPCON 05:28
DX: N83.201 Unspecified ovarian cyst, right side (principal); F10.120 Alcohol abuse with intoxication, uncomplicated
CPT/HCPCS: G0480

== ENCOUNTER 2016-07-08 17:43 | Emergency (ER) | payer MEDICAID ==
[2016-07-08] MEDS ORDERED: OXYCODONE/APAP 5/325 TAB PO ONE (18:50)
[2016-07-08] MEDS ORDERED: LORazepam 1 MG TAB PO ONE (18:50)
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
[2016-07-08] MEDS ORDERED: oxyCODONE IR 5 MG TAB ONE (19:01)
[2016-07-08] MEDS ORDERED: ONDANSETRON DISINTEGRATING 4 MG TAB ONE (19:38)
[2016-07-08] MEDS ORDERED: ONDANSETRON DISINTEGRATING 4 MG TAB PO ONE (19:47)
[2016-07-08] MEDS ORDERED: NS 1,000 ML IV ONE (20:03)
[2016-07-08] MEDS ORDERED: METOCLOPRAMIDE 10 MG/2 ML VIAL IVP ONE (20:03)
[2016-07-08] MEDS ORDERED: LORazepam 2 MG/ML INJ ONE (20:12)
[2016-07-08 20:21] LABS: % IMMATURE GRANULYOCYTES 0.3 % (0.0-1.1); ABSOLUTE IMMATURE GRANULOCYTES 0.02 10^3/uL (0.00-0.10); ADD DIFF? NO; ADD MORPH? NO; ADD SCAN? NO; ATYPICAL LYMPHOCYTE FLAG 10 (0-99); FRAGMENT RBC FLAG 0 (0-99); HEMOGLOBIN 14.2 g/dL (12.6-16.3); LEFT SHIFT FLG 0 (0-99); LIPEMIA HEMOLYSIS FLAG 90 (0-99); MEAN CELL HEMOGLOBIN 31.7 pg (27.9-34.1); MEAN CELL HEMOGLOBIN CONCENTR. 34.6 g/dL (32.4-36.7); MEAN CELL VOLUME 91.5 fL (81.5-99.8); MEAN PLATELET VOLUME 9.8 fL (8.7-11.7); PLATELET CLUMPS FLAG 0 (0-99); PLATELET COUNT 289 10^3/uL (150-400); RED BLOOD CELL COUNT 4.48 10^6/uL (4.18-5.33); RED CELL DISTRIBUTION WIDTH 13.2 % (11.5-15.2)
[2016-07-08] MEDS ORDERED: LORazepam 2 MG/ML INJ IVP ONE (20:21)
[2016-07-08 20:40] LABS: ANION GAP 13 mEq/L (8-16); CALCIUM 10.1 mg/dL (8.5-10.4); CARBON DIOXIDE 21 mEq/l (22-31); CHLORIDE 110 mEq/L (97-110); CREATININE 0.8 mg/dL (0.6-1.0); GLOMERULAR FILTRATION RATE > 60; GLUCOSE 82 mg/dL (70-100); POTASSIUM 3.9 mEq/L (3.5-5.2); SODIUM 144 mEq/L (134-144)
[2016-07-08 21:28] VITALS: BP 128/78; PULSE 70; RESP 14; TEMP 98.4; O2SAT 94
== END 2016-07-08 21:26 | disposition home or self-care (01) ==
DX: S09.90XA Unspecified injury of head, initial encounter (principal); S16.1XXA Strain of muscle, fascia and tendon at neck level, initial encounter; W10.9XXA Fall (on) (from) unspecified stairs and steps, initial encounter
CPT/HCPCS: 96374; J2765; L0120

== ENCOUNTER 2016-09-21 09:24 | Inpatient (IN) | payer MEDICAID ==
[2016-09-21] MEDS ORDERED: ONDANSETRON 4 MG/2 ML VIAL ONE ×2 (09:51→14:19)
[2016-09-21 09:58] LABS: % IMMATURE GRANULYOCYTES 0.3 % (0.0-1.1); ABSOLUTE IMMATURE GRANULOCYTES 0.04 10^3/uL (0.00-0.10); ADD DIFF? NO; ADD MORPH? NO; ADD SCAN? NO; ATYPICAL LYMPHOCYTE FLAG 0 (0-99); FRAGMENT RBC FLAG 0 (0-99); HEMATOCRIT 35.7 % (38.0-47.0); HEMOGLOBIN 12.3 g/dL (12.6-16.3); LEFT SHIFT FLG 20 (0-99); LIPEMIA HEMOLYSIS FLAG 90 (0-99); MEAN CELL HEMOGLOBIN 32.8 pg (27.9-34.1); MEAN CELL HEMOGLOBIN CONCENTR. 34.5 g/dL (32.4-36.7); MEAN CELL VOLUME 95.2 fL (81.5-99.8); MEAN PLATELET VOLUME 9.9 fL (8.7-11.7); PLATELET CLUMPS FLAG 10 (0-99); PLATELET COUNT 184 10^3/uL (150-400); RED BLOOD CELL COUNT 3.75 10^6/uL (4.18-5.33); RED CELL DISTRIBUTION WIDTH 12.7 % (11.5-15.2)
[2016-09-21] MEDS ORDERED: NS 1,000 ML IV ONE ×2 (09:59→10:28)
[2016-09-21] MEDS ORDERED: ONDANSETRON 4 MG/2 ML VIAL IVP ONE ×2 (10:00→10:14)
[2016-09-21] MEDS ORDERED: HYDROmorphONE/DILAUDID 1 MG/ML SYR IVP ONE (10:14)
[2016-09-21 10:17] LABS: APTT 30.4 SEC (23.0-38.0); INR 1.09 (0.83-1.16)
[2016-09-21 10:21] LABS: ANION GAP 9 mEq/L (8-16); BILIRUBIN,TOTAL 0.6 mg/dL (0.1-1.4); CALCIUM 9.1 mg/dL (8.5-10.4); CARBON DIOXIDE 26 mEq/l (22-31); CHLORIDE 98 mEq/L (97-110); CREATININE 0.7 mg/dL (0.6-1.0); GLOMERULAR FILTRATION RATE > 60; GLUCOSE 104 mg/dL (70-100); POTASSIUM 4.5 mEq/L (3.5-5.2); SODIUM 133 mEq/L (134-144)
--- NOTE | 2016-09-21 10:24 | EDPHY ---
H & P Time Seen by Provider: 09/21/16 09:35 HPI/ROS: HPI Fever, shortness of breath, bone grafting on Saturday. 30-year-old female by private vehicle with her mother. 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 She had this removed with bone grafting performed at [facility] on Saturday by eap specialist Dr. Nova. she reports that on Saturday night she felt feverish. She reports that night she developed a fever of 101.3. She then woke this morning feeling short of breath with chest tightness and a fever of 102.3. She is also having pain at the surgical site, right lateral femur. She is currently taking Zofran for nausea and Vicodin for pain control. ROS: Constitutional: As above, no chills. No weakness. Eyes: No discharge. No changes in vision. ENT: No sore throat. No nasal congestion or rhinorrhea. Respiratory: No cough. As above. Cardiac: As above, no palpitations. Gastrointestinal: No abdominal pain, no vomiting, no diarrhea. Genitourinary: No hematuria. No dysuria or increased frequency with urination. Musculoskeletal: No back pain. No neck pain. No myalgias or arthralgias. As above. Skin: No rashes. Neurological: No headache. No focal weakness or altered sensation. Past medical history: Ovarian cyst, tonsillectomy, as above, at age 10 as well. Social history: Social alcohol. Nonsmoker. Here with her mother. Physical Exam: General Appearance: Alert, no distress. This patient is responding to questions appropriately and in full sentences. This patient appears well- hydrated and well-nourished. Eyes: Pupils equal and round no pallor or injection. No lid edema, erythema or injection. Respiratory: There are no retractions, lungs are clear to auscultation anteriorly with good air movement bilaterally. Cardiovascular: Regular rate and rhythm. Tachycardia. No murmur appreciated. Gastrointestinal: Abdomen is soft and nontender, no masses, bowel sounds normal. No focal tenderness at McBurney's point. No Loomis sign. Neurological: Motor sensory function is grossly intact. Cranial nerves are normal. Gait is normal. Skin: Warm and dry, no rashes. Musculoskeletal: Neck is supple and nontender. No pain on flexion of the neck. Extremities are symmetrical. Right lateral femur, dressing in place. Mild erythema around the margins of dressing. All joints range without pain or impingement. Psychiatric: No agitation. No depression. Database: EKG: EKG time is 10:24 a.m.; EKG shows a narrow complex sinus tachycardia with a ventricular rate of 116. The DE, QRS, QT intervals are within normal limits. There are no ST-T wave changes indicative of ischemic or injury pattern. No evidence of right heart strain. Interpreted by me. Imaging: Chest x-ray PA and lateral; the cardiac mediastinal silhouette is unremarkable. No evidence of infiltrate or pneumothorax. No acute cardiopulmonary disease process noted. Interpreted by me. CT angiogram of chest; no pulmonary embolism, trace pleural effusions bilaterally, mild pneumonitis superior left lower lobe. Results were discussed with staff radiologist Dr. José Miguel Marshall. Right lower extremity ultrasound: Negative for DVT. Results were discussed with staff radiologist Dr. José Miguel Marshall. Procedures: Emergency department course: Vital signs reviewed. IV placed. She was started on IV normal saline with 1 L to be given over the next hour. Sepsis protocol initiated. 10:30 a.m., patient re-evaluated. Blood pressure 91/60, heart rate 116, narrow complex sinus on the monitor. At this time she does not meet criteria for severe sepsis. She was started on a 2nd L of IV normal saline. She has multiple antibiotic allergies including penicillins, sulfa antibiotics and erythromycin. She will be given IV vancomycin. Plan is for admission. D- dimer pending in consideration of pulmonary embolism. 10:55 a.m., discussed case with hospitalist, Dr. Jc Gonzalez, he accepts the patient for admission, results of right lower extremity ultrasound pending, results of CT angiogram of chest pending. 12:25 p.m., patient remains in the emergency department. She has been admitted. Repeat blood pressure, systolic blood pressure of 87. Severe sepsis protocol initiated. After discussion with the patient regarding her medication allergies as well as the hospitalist she was started on additional broad- spectrum antibiotic coverage, 1 g IV Invanz. Patient's blood pressures return to the mid 90s after additional IV fluids. She reports this is field support representative of her baseline blood pressure. Patient was admitted to the hospitalist service in stable condition. Differential Diagnosis: The differential diagnosis on this patient includes but is not limited to sepsis , postsurgical infection, DVT, PE. This represents a partial list of diagnoses considered. These considerations are based on history, physical exam, past history, reassessment and diagnostic testing. Smoking Status: Never smoked Constitutional: Initial Vital Signs Temperature (C) 39.2 C H 09/21/16 09:26 Heart Rate 138 H 09/21/16 09:26 Respiratory Rate 16 09/21/16 09:26 Blood Pressure 98/67 L 09/21/16 09:26 O2 Sat (%) 94 09/21/16 09:26 O2 Delivery Mode Room Air Allergies/Adverse Reactions: acetaminophen [From Tylenol Cold M-S Severe Daytim] Allergy (Verified 07/08/16 17:45) amoxicillin [Amoxicillin] Allergy (Verified 07/08/16 17:45) aspirin [Aspirin] Allergy (Verified 07/08/16 17:45) dexchlorpheniramine [Dexchlorpheniramine] Allergy (Verified 07/08/16 17:45) dextromethorphan HBr [From Tylenol Cold M-S Severe Daytim] Allergy (Verified 04/14 17:45) diphenhydramine HCl [From Benadryl] Allergy (Verified 07/08/16 17:45) erythromycin base [Erythromycin Base] Allergy (Verified 07/08/16 17:45) guaifenesin [From Tylenol Cold M-S Severe Daytim] Allergy (Verified 07/08/16 17: 45) ibuprofen [From Advil] Allergy (Verified 07/08/16 17:45) mushroom Allergy (Verified 07/08/16 17:45) phenylephrine HCl [From Tylenol Cold M-S Severe Daytim] Allergy (Verified 17:45) pseudoephedrine Allergy (Verified 07/08/16 17:45) pseudoephedrine HCl [From Sudafed] Allergy (Verified 07/08/16 17:45) Sulfa (Sulfonamide Antibiotics) Allergy (Verified 07/08/16 17:45) METHSCOLOLAMINE Allergy (Uncoded 08/08/10 13:30) Home Medications: Medication Instructions Recorded Cyclobenzaprine [Flexeril 10 MG 10 mg PO TID PRN 09/21/16 (*)] Diazepam [Valium 5 MG (*)] 5 mg PO Q6HRS PRN 09/21/16 HYDROmorphone HCL [Dilaudid 4 mg 4 mg PO Q4HRS PRN 09/21/16 (*)] Temazepam [Restoril 15 MG (*)] 15 mg PO HSPRN PRN 09/21/16 clonazePAM [klonoPIN (*)] 1 mg PO BID PRN 09/21/16 traMADol [Ultram 50 mg (*)] 50 mg PO Q6HRS PRN 09/21/16 Docusate Sodium [Colace 100 MG (*)] 100 mg PO BID #30 cap 09/22/16 Polyethylene Glycol 3350 [Miralax 17 gm PO DAILY PRN #0 pkt 09/22/16 17 gm (*)] Sennosides/Docusate Sodium 1 - 2 tab PO BID tab 09/22/16 [Senokot-S] oxyCODONE IR [Oxycodone Ir (*)] 5 - 10 mg PO Q3HRS PRN #14 tab 09/22/16 Medical Decision Making - Data Points Laboratory Results: Laboratory Results 09/21/16 09:43 09/21/16 09:43 Microbiology Results: MICROBIOLOGY 09/21/16 10:50 Unspecified Urine Culture - Preliminary Medications Given: Discontinued Medications Bisacodyl (Dulcolax Rectal) 10 mg DE ONCE ONE Stop: 09/22/16 11:14 Last Admin: 09/22/16 12:40 Dose: 10 mg Hydromorphone HCl (Dilaudid) 0.5 mg IVP EDNOW ONE Stop: 09/21/16 10:15 Last Admin: 09/21/16 10:26 Dose: 0.5 mg Hydromorphone HCl (Dilaudid) 0.5 mg IVP EDNOW ONE Stop: 09/21/16 11:26 Last Admin: 09/21/16 11:26 Dose: 0.5 mg Sodium Chloride (Ns) 1,000 mls @ 0 mls/hr IV ONCE ONE PRN Reason: Wide Open Stop: 09/21/16 10:00 Last Admin: 09/21/16 10:00 Dose: 1,000 mls Vancomycin HCl 1.5 gm/ (Dextrose) 250 mls @ 166.67 mls/hr IV EDNOW ONE PRN Reason: Protocol Stop: 09/21/16 11:57 Last Admin: 09/21/16 11:25 Dose: 250 mls Sodium Chloride (Ns) 1,000 mls @ 0 mls/hr IV ONCE ONE PRN Reason: Wide Open Stop: 09/21/16 10:29 Last Admin: 09/21/16 11:34 Dose: 1,000 mls Ertapenem 1 gm/ Sodium (Chloride) 100 mls @ 200 mls/hr IV EDNOW ONE PRN Reason: Protocol Stop: 09/21/16 12:56 Last Admin: 09/21/16 14:28 Dose: 100 mls Sodium Chloride (Ns) 1,600 mls @ 3,200 mls/hr 30 ml/kg infuse over 30 min ( 1600 ml) IV EDNOW ONE Stop: 09/21/16 12:56 Last Admin: 09/21/16 12:30 Dose: Not Given Ondansetron HCl (Zofran) 4 mg IVP EDNOW ONE Stop: 09/21/16 10:01 Last Admin: 09/21/16 10:01 Dose: 4 mg Ondansetron HCl (Zofran) 4 mg IVP EDNOW ONE Stop: 09/21/16 10:15 Last Admin: 09/21/16 10:26 Dose: 4 mg Departure - Departure Disposition: [facility] Acute Clinical Impression: Fever, Tachycardia, Right femur surgery, Sepsis
--- NOTE | 2016-09-21 10:26 | CPEKG ---
Heart Rate: 116 RR Interval: 517 P-R Interval: 112 QRSD Interval: 86 QT Interval: 336 QTC Interval: 467 P Hawkeye: 69 QRS Hawkeye: 100 T Wave Hawkeye: 8 EKG Severity - BORDERLINE ECG - EKG Impression: SINUS TACHYCARDIA EKG Impression: LOW VOLTAGE THROUGHOUT EKG Impression: CONSIDER RIGHT VENTRICULAR HYPERTROPHY Electronically Signed By: Jorge Saldana 21-Sep-2016 15:14:51
[2016-09-21] MEDS ORDERED: VANCOMYCIN 1.5 GM in D5W 250 ML IV ONE (10:28)
[2016-09-21 11:01] LABS: COLOR YELLOW; LEUKOCYTE ESTERASE,URINE NEGATIVE (NEGATIVE); NITRITE,URINE NEGATIVE (NEGATIVE)
[2016-09-21 11:06] LABS: BACTERIA 1+ /hpf (NONE SEEN)
[2016-09-21 11:09] LABS: WBC,URINE NONE SEEN /hpf (0-3)
[2016-09-21] MEDS ORDERED: HYDROmorphONE/DILAUDID 1 MG/ML SYR ONE (11:16)
[2016-09-21] MEDS ORDERED: HYDROmorphONE/DILAUDID 2 MG/ML INJ IVP ONE (11:25)
[2016-09-21] MEDS ORDERED: IOPAMIDOL (ISOVUE 370) 100 ML BTL IV ONE (11:32)
[2016-09-21] MEDS ORDERED: NS 1,600 ML IV ONE (12:27)
[2016-09-21] MEDS ORDERED: ERTAPENEM 1 GM in NS 100 ML IV ONE (12:27)
[2016-09-21] MEDS ORDERED: DIAZEPAM 5 MG TAB PO PRN (16:22)
[2016-09-21] MEDS ORDERED: TEMAZEPAM 15 MG CAP PO PRN (16:22)
[2016-09-21] MEDS ORDERED: traMADol 50 MG TAB PO PRN (16:22)
[2016-09-21] MEDS ORDERED: clonazePAM 1 MG TAB PO PRN (16:22)
[2016-09-21] MEDS ORDERED: ONDANSETRON 4 MG/2 ML VIAL IVP PRN (16:23)
[2016-09-21] MEDS ORDERED: NS 1,000 ML IV SCH (16:30)
--- NOTE | 2016-09-21 16:33 | PDGENHP ---
History and Physical - History of Present Illness 30 yo F with recent right femur bone graft admitted with fever, SOB, and possibly sepsis. 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 She had this removed with bone grafting performed at [facility] on Saturday by construction specialist Dr. Nova. she reports that on Saturday night she felt feverish. She reports that night she developed a fever of 101.3. She then woke this morning feeling short of breath with chest tightness and a fever of 102.3. She is having pain at the surgical site, right lateral femur. In the E.D. she was found to be hypotensive and broad spectrum abx were started and aggressive IVF were given. BP was as lows as the 80's. Her baseline is low 100's systolic. Lactic Acid was unremarkable. On the floor, BP continues to be in the 90's. She reports to be feeling better, but c/o of paint to the right leg and thigh area. CTA chest, CXR, US lower extremity were unremarkable. currently appears comfortable on room air. No CP, SOB, or other. Mentation is intact. Past medical history: Bone Cyst, Ovarian cyst, tonsillectomy, as above, at age 10 as well. PSHx: recent bone graft Social history: Social alcohol. Nonsmoker. Here with family FMhx: Non contributory History Information - Allergies/Home Medication List Allergies/Adverse Reactions: acetaminophen [From Tylenol Cold M-S Severe Daytim] Allergy (Verified 07/08/16 17:45) amoxicillin [Amoxicillin] Allergy (Verified 07/08/16 17:45) aspirin [Aspirin] Allergy (Verified 07/08/16 17:45) dexchlorpheniramine [Dexchlorpheniramine] Allergy (Verified 07/08/16 17:45) dextromethorphan HBr [From Tylenol Cold M-S Severe Daytim] Allergy (Verified 04/14 17:45) diphenhydramine HCl [From Benadryl] Allergy (Verified 07/08/16 17:45) erythromycin base [Erythromycin Base] Allergy (Verified 07/08/16 17:45) guaifenesin [From Tylenol Cold M-S Severe Daytim] Allergy (Verified 07/08/16 17: 45) ibuprofen [From Advil] Allergy (Verified 07/08/16 17:45) mushroom Allergy (Verified 07/08/16 17:45) phenylephrine HCl [From Tylenol Cold M-S Severe Daytim] Allergy (Verified 17:45) pseudoephedrine Allergy (Verified 07/08/16 17:45) pseudoephedrine HCl [From Sudafed] Allergy (Verified 07/08/16 17:45) Sulfa (Sulfonamide Antibiotics) Allergy (Verified 07/08/16 17:45) METHSCOLOLAMINE Allergy (Uncoded 08/08/10 13:30) Home Medications: Cyclobenzaprine [Flexeril 10 MG (*)] 10 mg PO TID PRN 09/21/16 [Last Taken Unknown] Diazepam [Valium 5 MG (*)] 5 mg PO Q6HRS PRN 09/21/16 [Last Taken 09/21/16] HYDROmorphone HCL [Dilaudid 4 mg (*)] 4 mg PO Q4HRS PRN 09/21/16 [Last Taken ] Temazepam [Restoril 15 MG (*)] 15 mg PO HSPRN PRN 09/21/16 [Last Taken Unknown] clonazePAM [klonoPIN (*)] 1 mg PO BID PRN 09/21/16 [Last Taken Unknown] traMADol [Ultram 50 mg (*)] 50 mg PO Q6HRS PRN 09/21/16 [Last Taken 09/20/16 21: 00] I have personally reviewed and updated: family history, medical history, social history - Social History Smoking Status: Never smoked Review of Systems ROS: 10pt was reviewed & negative except for what was stated in HPI & below Physical Exam Temp Pulse Resp BP Pulse Ox 36.7 C 97 15 89/59 L 90 L 09/21/16 16:00 09/21/16 16:00 09/21/16 16:00 09/21/16 16:00 09/21/16 16:00 O2 (L/minute) 1 Constitutional: no apparent distress, appears nourished Eyes: PERRL, EOMI Ears, Nose, Mouth, Throat: moist mucous membranes, hearing normal Cardiovascular: regular rate and rhythym, no murmur, rub, or gallop Respiratory: no respiratory distress, no rales or rhonchi, clear to auscultation Gastrointestinal: normoactive bowel sounds Genitourinary: no bladder fullness Skin: warm, normal color Musculoskeletal: other (right thigh: well demarcated rash/erythema around inferior portion of incision. No increased heat or induration) Neurologic: AAOx3, sensation intact bilaterally Psychiatric: interacting appropriately Lab Data & Imaging Review 09/21/16 09:43 09/21/16 09:43 WBC 12.12 10^3/uL (3.80-9.50) H 09/21/16 09:43 RBC 3.75 10^6/uL (4.18-5.33) L 09/21/16 09:43 Hgb 12.3 g/dL (12.6-16.3) L 09/21/16 09:43 Hct 35.7 % (38.0-47.0) L 09/21/16 09:43 MCV 95.2 fL (81.5-99.8) 09/21/16 09:43 MCH 32.8 pg (27.9-34.1) 09/21/16 09:43 MCHC 34.5 g/dL (32.4-36.7) 09/21/16 09:43 RDW 12.7 % (11.5-15.2) 09/21/16 09:43 Plt Count 184 10^3/uL (150-400) 09/21/16 09:43 MPV 9.9 fL (8.7-11.7) 09/21/16 09:43 Neut % (Auto) 79.2 % (39.3-74.2) H 09/21/16 09:43 Lymph % (Auto) 9.6 % (15.0-45.0) L 09/21/16 09:43 [place] % (Auto) 9.8 % (4.5-13.0) 09/21/16 09:43 Eos % (Auto) 0.6 % (0.6-7.6) 09/21/16 09:43 Baso % (Auto) 0.5 % (0.3-1.7) 09/21/16 09:43 Nucleat RBC Rel Count 0.0 % (0.0-0.2) 09/21/16 09:43 Absolute Neuts (auto) 9.60 10^3/uL (1.70-6.50) H 09/21/16 09:43 Absolute Lymphs (auto) 1.16 10^3/uL (1.00-3.00) 09/21/16 09:43 Absolute Monos (auto) 1.19 10^3/uL (0.30-0.80) H 09/21/16 09:43 Absolute Eos (auto) 0.07 10^3/uL (0.03-0.40) 09/21/16 09:43 Absolute Basos (auto) 0.06 10^3/uL (0.02-0.10) 09/21/16 09:43 Absolute Nucleated RBC 0.00 10^3/uL (0-0.01) 09/21/16 09:43 Immature Gran % 0.3 % (0.0-1.1) 09/21/16 09:43 Immature Gran # 0.04 10^3/uL (0.00-0.10) 09/21/16 09:43 PT 14.0 SEC (12.0-15.0) 09/21/16 09:43 INR 1.09 (0.83-1.16) 09/21/16 09:43 APTT 30.4 SEC (23.0-38.0) 09/21/16 09:43 D-Dimer 0.66 ug/mLFEU (0.00-0.50) H 09/21/16 09:43 VBG Lactic Acid 1.3 mmol/L (0.7-2.1) 09/21/16 09:43 Sodium 133 mEq/L (134-144) L 09/21/16 09:43 Potassium 4.5 mEq/L (3.5-5.2) 09/21/16 09:43 Chloride 98 mEq/L (97-110) 09/21/16 09:43 Carbon Dioxide 26 mEq/l (22-31) 09/21/16 09:43 Anion Gap 9 mEq/L (8-16) 09/21/16 09:43 BUN 8 mg/dL (7-23) 09/21/16 09:43 Creatinine 0.7 mg/dL (0.6-1.0) 09/21/16 09:43 Estimated GFR > 60 09/21/16 09:43 Glucose 104 mg/dL (70-100) H 09/21/16 09:43 Calcium 9.1 mg/dL (8.5-10.4) 09/21/16 09:43 Total Bilirubin 0.6 mg/dL (0.1-1.4) 09/21/16 09:43 Beta HCG, Qual NEGATIVE 09/21/16 09:43 Urine Color YELLOW 09/21/16 10:50 Urine Appearance CLEAR 09/21/16 10:50 Urine pH 9.0 (5.0-7.5) H 09/21/16 10:50 Ur Specific Holden 1.009 (1.002-1.030) 09/21/16 10:50 Urine Protein NEGATIVE (NEGATIVE) 09/21/16 10:50 Urine Ketones NEGATIVE (NEGATIVE) 09/21/16 10:50 Urine Blood NEGATIVE (NEGATIVE) 09/21/16 10:50 Urine Nitrate NEGATIVE (NEGATIVE) 09/21/16 10:50 Urine Bilirubin NEGATIVE (NEGATIVE) 09/21/16 10:50 Urine Urobilinogen NEGATIVE EU (0.2-1.0) 09/21/16 10:50 Ur Leukocyte Esterase NEGATIVE (NEGATIVE) 09/21/16 10:50 Urine RBC 1-3 /hpf (0-3) 09/21/16 10:50 Urine WBC NONE SEEN /hpf (0-3) 09/21/16 10:50 Ur Epithelial Cells TRACE /lpf (NONE-1+) 09/21/16 10:50 Urine Bacteria 1+ /hpf (NONE SEEN) H 09/21/16 10:50 Urine Glucose NEGATIVE (NEGATIVE) 09/21/16 10:50 Assessment & Plan Assessment: 30 yo female admitted for possible sepsis vs surgical infection vs other #Questions Sepsis: Negative lactic acid but hypotension and fever would indicate an infection. Continue with Vanc and Invanz started in the E.D. Multiple abx allergy noted. Continue with IVF. Await Blood cultures. #? post operative infection/surgical site infection. The distal aspect of her incision has a dermatitis appearing like rash. It is very tender and has a burning sensation. There is no increased heat or apparent induration. Ortho will see to determine how to proceed. Femur XR's are pending. Will keep NPO for now. # Hypoxemia and shortness of breath. Appears resolved. No infiltrate on exam ( personally reviewed). #recent right femur bone graft #acute pain syndrome: treat symptomatically DVT proph: SCD's Full Code.
[2016-09-21] MEDS ORDERED: clonazePAM 0.5 MG TAB PO PRN (16:36)
[2016-09-21] MEDS: CYCLOBENZAPRINE 10 MG TAB PO PRN ×2 (16:57→22:35)
[2016-09-21] MEDS: HYDROmorphONE/DILAUDID 4 MG TAB PO PRN ×2 (16:57→21:30)
[2016-09-21] MEDS: ONDANSETRON DISINTEGRATING 4 MG TAB PO PRN (21:30)
--- NOTE | 2016-09-21 23:08 | GCON ---
[f rep st] CONSULTATION INPATIENT CONSULTATION CHIEF COMPLAINT: Right thigh pain. HISTORY OF PRESENT ILLNESS: A 30-year-old female, who underwent curettage and bone grafting of a ri ght femoral cyst 4 days ago at [facility] by Dr. Nova. She had been admitted to the hospital 2 days ago and then was discharged. She began having fevers couple nights ago and reports temperatures of 101.3 and 102.3. She had pain and burning of the skin over the right femur and also pain deep within the bone. Her mother brought her to the emergency room. She was admitted to the hospital for further workup. CTA and lower extremity Dopplers were negative. I was asked to see he r. PAST MEDICAL HISTORY: Bone cyst, ovarian cyst, tonsillectomy. PAST SURGICAL HISTORY: As mentioned above. SOCIAL HISTORY: Social alcohol. Nonsmoker. FAMILY HISTORY: Reviewed and noncontributory. ALLERGIES: Please see list in [employer]. HOME MEDICATIONS: Flexeril, Valium, Dilaudid, Restoril, Klonopin, Ultram. REVIEW OF SYSTEMS: 10-point review of systems was negative other than above. LABORATORY DATA: White count was still at 12.12 upon admission. PHYSICAL EXAMINATION: GENERAL: She is alert and oriented. VITAL SIGNS: Stable. She is afebrile here. HEAD: Atraumatic, normocephalic. EYES: Equal and reactive. MOUTH: Moist mucous membranes . NECK: Supple. CHEST: Symmetric chest rise. CARDIAC: Pulses are regular rate and rhythm. ABD OMEN: Soft. Her right lower extremity, I removed the dressing. Her skin appeared to be reacting t o the dressing and was quite raw and red in the area around the dressing. The incision looked close d and looked good. There was no evidence of infection or drainage from the incision. Her skin was quite raw around this. This was then re-dressed with a nonadhesive dressing. EXTREMITIES: She was neurovascularly intact in the right lower extremity. Able to wiggle her toes and bend her knee. S he had some pain with movement of the hip. Her other extremities showed good range of motion. Neur ovascularly intact. RADIOGRAPHS: Obtained femur radiographs showing the recent bone grafting with what looks like calci um phosphate cement of the femoral cyst. I am not seeing a new fracture or anything concerning. DIAGNOSES: 1. Postoperative right curettage and bone grafting. 2. Contact dermatitis for skin. PLAN: I discussed with her and her mother. Her surgeon Dr. Nova had recommended she be nonweight bearing. Will continue this. This wound was re-dressed with a non-stick dressing, and I think she had a reaction to the dressing causing a portion of her pain. The patient can begin to move around. DVT and PE have been ruled out on her. I think she can be discharged from the hospital when the [facility] team feels it is appropriate. I would have her follow up with Dr. Nova, her surgeon, for f ther followup, but I gave them my card and they can contact me if they wish to follow up with me. /[id number]/MODL
[2016-09-22] MEDS: oxyCODONE IR 5 MG TAB PO PRN ×3 (00:32→14:12)
[2016-09-22] MEDS: ONDANSETRON DISINTEGRATING 4 MG TAB PO PRN ×3 (03:24→14:12)
[2016-09-22] MEDS: HYDROmorphONE/DILAUDID 4 MG TAB PO PRN (03:24)
[2016-09-22 03:27] VITALS: RESP 16
[2016-09-22 04:55] LABS: % IMMATURE GRANULYOCYTES 0.2 % (0.0-1.1); ABSOLUTE IMMATURE GRANULOCYTES 0.01 10^3/uL (0.00-0.10); ADD DIFF? NO; ADD MORPH? NO; ADD SCAN? NO; ATYPICAL LYMPHOCYTE FLAG 0 (0-99); FRAGMENT RBC FLAG 0 (0-99); HEMATOCRIT 29.9 % (38.0-47.0); HEMOGLOBIN 10.1 g/dL (12.6-16.3); LEFT SHIFT FLG 0 (0-99); LIPEMIA HEMOLYSIS FLAG 90 (0-99); MEAN CELL HEMOGLOBIN 32.8 pg (27.9-34.1); MEAN CELL HEMOGLOBIN CONCENTR. 33.8 g/dL (32.4-36.7); MEAN CELL VOLUME 97.1 fL (81.5-99.8); MEAN PLATELET VOLUME 9.8 fL (8.7-11.7); PLATELET CLUMPS FLAG 10 (0-99); PLATELET COUNT 158 10^3/uL (150-400); RED BLOOD CELL COUNT 3.08 10^6/uL (4.18-5.33); RED CELL DISTRIBUTION WIDTH 12.6 % (11.5-15.2)
[2016-09-22 05:16] LABS: ANION GAP 3 mEq/L (8-16); CALCIUM 8.2 mg/dL (8.5-10.4); CARBON DIOXIDE 26 mEq/l (22-31); CHLORIDE 105 mEq/L (97-110); CREATININE 0.6 mg/dL (0.6-1.0); GLOMERULAR FILTRATION RATE > 60; GLUCOSE 91 mg/dL (70-100); POTASSIUM 4.2 mEq/L (3.5-5.2); SODIUM 134 mEq/L (134-144)
[2016-09-22] MEDS ORDERED: MAGNESIUM HYDROXIDE 30 ML UDCUP PO PRN (10:46)
[2016-09-22] MEDS ORDERED: LACTULOSE 20 GM/30 ML UDCUP PO PRN (10:46)
[2016-09-22] MEDS ORDERED: BISACODYL 10 MG SUPP PR PRN (10:46)
[2016-09-22] MEDS ORDERED: POLYETHYLENE GLYCOL 3350 17 GM PKT PO PRN (10:46)
[2016-09-22] MEDS ORDERED: BISACODYL 10 MG SUPP PR ONE (11:13)
[2016-09-22 11:58] VITALS: BP 95/63; PULSE 92; TEMP 98.3; O2SAT 94
--- NOTE | 2016-09-22 14:44 | GDS ---
[f rep st] DISCHARGE SUMMARY DISCHARGE DIAGNOSES: 1. Contact dermatitis of skin. 2. Hypotension. 3. Tachycardia. 4. Pain. 5. Chronic pain syndrome. CONSULTATIONS: Dr. Mcgregor of Orthopedics. STUDIES AND PROCEDURES: 1. Femur x-ray. 2. CT angio of the chest. 3. Doppler study. PHYSICAL EXAM: GENERAL: The patient is alert. VITAL SIGNS: Afebrile at 36.8. Pulse is 92. Resp iratory rate is 16. Blood pressure is 95/63. She is saturating 94% on room air. I have seen and e valuated the patient on the day of discharge. HOSPITAL COURSE: The patient is a 30-year-old female who presented to the emergency room with compl aints of right thigh pain. She was evaluated and diagnosed with: 1. Contact dermatitis. During this hospitalization, she received a consultation from Dr. Mcgregor of Orthopedics. It was felt that the patient had had an adverse reaction to a previous dressing place d, and it was causing a significant amount of pain and erythema. She was treated with supportive ca re and dressing has been transitioned. She is doing well and tolerating this. She has no further s igns of infectious process. 2. Recent right femoral bone graft. This will be followed by her primary surgeon at [facility]. 3. Hypoxemia with shortness of breath. This has resolved and was potentially atelectasis related. 4. Chronic pain syndrome. She has been treated and her pain was well controlled during this hospit al course. DISPOSITION: The patient will be discharged home independently with her parents. There are no pending studies. DISCHARGE MEDICATIONS: I have provided her a prescription for oxycodone IR, #14, and recommended co ntinued aggressive bowel protocol. Follow up will be with her primary care physician as well as her surgeon, Dr. Nova. I spent greater than 35 minutes in the care, coordination, and education of this patient's dispositi on. /[id number]/MODL
[2016-09-22] MEDS ORDERED: SENNOSIDES/DOCUSATE SODIUM TAB PO SCH (21:00)
== END 2016-09-22 15:40 | disposition home or self-care (01) | DRG 607 ==
LOC: F3N 13:13
PROVIDERS: ADMIT Family Medicine; ATTEND Hospitalist
DX: L23.1 Allergic contact dermatitis due to adhesives (principal); I95.9 Hypotension, unspecified; J98.11 Atelectasis; Z47.89 Encounter for other orthopedic aftercare
CPT/HCPCS: 96365; J1170; J1335; J2405; J3370; Q9967

== ENCOUNTER 2017-02-28 14:13 | Emergency (ER) | payer MEDICAID ==
[2017-02-28] MEDS ORDERED: ONDANSETRON 4 MG/2 ML VIAL IVP ONE ×4 (14:32→17:14)
[2017-02-28 14:45] LABS: PLATELET COUNT 266 10^3/uL (150-400)
[2017-02-28] MEDS ORDERED: HYDROmorphONE/DILAUDID 1 MG/ML INJ IVP ONE ×4 (15:28→17:14)
[2017-02-28] MEDS ORDERED: NS 1,000 ML IV ONE ×2 (15:28)
[2017-02-28] MEDS ORDERED: LIDOCAINE 1% 100 MG in NS 100 ML IV ONE (15:28)
--- NOTE | 2017-02-28 15:31 | EDPHY ---
H & P Time Seen by Provider: 02/28/17 15:04 HPI/ROS: CHIEF COMPLAINT: Right-sided abdominal pain HISTORY OF PRESENT ILLNESS: Patient is a history of ovarian cyst. She was on pain medication until about a month ago after having a complicated orthopedic surgery in August. Today she describes feeling a little uncomfortable last night, she had a glass of wine with her mother. She awoke with fever at 2:00 a.m. and then around 9: 00 a.m. this morning had sharp very low right quadrant pain in her abdomen radiating to her right flank associated with nausea and vomiting. She did not have dysuria or hematuria. Her last menstrual period was February 10 but does not know for sure if she is . No bleeding or vaginal discharge. Symptoms severe, not better worse with position. REVIEW OF SYSTEMS: Eye: no change in vision ENT: no sore throat Cardiac: no chest pain or syncope Pulmonary: no cough or SOB Abdomen: HPI Musculoskeletal: no back pain Skin: no rash Neuro: no headache Constitutional: no fever : no urinary symptoms A comprehensive 10 point review of systems is otherwise negative aside from elements mentioned in the history of present illness. PAST MEDICAL HISTORY: Anxiety and ovarian cyst. Takes Klonopin every day. Fibroids, multiple orthopedic surgeries on her right femur last in August Social history: Took Uber here, did not drive. General Appearance: Alert and conversant, cooperative. Eyes: No scleral icterus. ENT, Mouth: Normal mucous membranes. Respiratory: Normal respiratory effort, breath sounds equal, lungs are clear to auscultation. Cardiovascular: Regular rate and rhythm. Gastrointestinal: Some mild right very low abdominal tenderness, no McBurney's point tenderness, no rebound or guarding, normal bowel sounds, no hernia. Neurological: Alert and oriented x3. Normally conversant. Face symmetric, normal movement and sensation in all extremities. Skin: Warm and dry, no rashes. Musculoskeletal: No peripheral edema and no joint swelling. Psychiatric: Not agitated. Mildly anxious. Emergency Department course/MDM: Zofran 4 mg IV, Dilaudid 0.5 mg IV. She has 2+ blood in her urine so ultrasound to include right ovary and appendix as well as right retroperitoneum is ordered. Negative test. H&P dated 09/21/2016 personally reviewed. 1633: Labs reviewed including normal white blood cell count, urine shows 3-5 red blood cells. 1711: [facility] US appendix normal, submucosal fibroid. Results discussed, recurrent pain, additional IV Dilaudid, CT discussed and consented to evaluate for renal colic. 1802: Normal CT per Mihir, no renal colic and normal appendix. Results discussed at this time. She is feeling better, talking with a friend who is now present in the room. 1835: Normal pelvic exam performed with the patient's nurse Estefani. No cervical motion tenderness. No significant discharge. GC and chlamydia sent, would not treat empirically. Smoking Status: Never smoked Constitutional: Initial Vital Signs Temperature (C) 36.8 C 02/28/17 14:17 Heart Rate 101 H 02/28/17 14:17 Respiratory Rate 18 02/28/17 14:17 Blood Pressure 110/85 H 02/28/17 14:17 O2 Sat (%) 98 02/28/17 14:17 O2 Delivery Mode Room Air Allergies/Adverse Reactions: acetaminophen [From Tylenol Cold M-S Severe Daytim] Allergy (Verified 07/08/16 17:45) amoxicillin [Amoxicillin] Allergy (Verified 07/08/16 17:45) aspirin [Aspirin] Allergy (Verified 07/08/16 17:45) dexchlorpheniramine [Dexchlorpheniramine] Allergy (Verified 07/08/16 17:45) dextromethorphan HBr [From Tylenol Cold M-S Severe Daytim] Allergy (Verified 04/14 17:45) diphenhydramine HCl [From Benadryl] Allergy (Verified 07/08/16 17:45) erythromycin base [Erythromycin Base] Allergy (Verified 07/08/16 17:45) guaifenesin [From Tylenol Cold M-S Severe Daytim] Allergy (Verified 07/08/16 17: 45) ibuprofen [From Advil] Allergy (Verified 07/08/16 17:45) mushroom Allergy (Verified 07/08/16 17:45) Penicillins Allergy (Verified 02/28/17 14:16) phenylephrine HCl [From Tylenol Cold M-S Severe Daytim] Allergy (Verified 17:45) pseudoephedrine Allergy (Verified 07/08/16 17:45) pseudoephedrine HCl [From Sudafed] Allergy (Verified 07/08/16 17:45) Sulfa (Sulfonamide Antibiotics) Allergy (Verified 07/08/16 17:45) METHSCOLOLAMINE Allergy (Uncoded 08/08/10 13:30) Home Medications: Medication Instructions Recorded Cyclobenzaprine [Flexeril 10 MG 10 mg PO TID PRN 09/21/16 (*)] Diazepam [Valium 5 MG (*)] 5 mg PO Q6HRS PRN 09/21/16 HYDROmorphone HCL [Dilaudid 4 mg 4 mg PO Q4HRS PRN 09/21/16 (*)] Temazepam [Restoril 15 MG (*)] 15 mg PO HSPRN PRN 09/21/16 clonazePAM [klonoPIN (*)] 1 mg PO BID PRN 09/21/16 traMADol [Ultram 50 mg (*)] 50 mg PO Q6HRS PRN 09/21/16 Docusate Sodium [Colace 100 MG (*)] 100 mg PO BID #30 cap 09/22/16 Polyethylene Glycol 3350 [Miralax 17 gm PO DAILY PRN #0 pkt 09/22/16 17 gm (*)] Sennosides/Docusate Sodium 1 - 2 tab PO BID tab 09/22/16 [Senokot-S] oxyCODONE IR [Oxycodone Ir (*)] 5 - 10 mg PO Q3HRS PRN #14 tab 09/22/16 Medical Decision Making - Diagnostics Imaging Results: Imaging Impressions Abdomen Ultrasound 02/28/17 15:28 Impression: Appendix within normal limits, with no secondary evidence of appendicitis. Findings discussed with KAYLA DOOLEY 02/28/2017 at 17:10. Pelvic/Renal Ultrasound 02/28/17 15:28 Impression: 1. No acute findings in the pelvis. 2. Stable fundal fibroid with a submucosal 8 mm fibroid not previously visible. Findings discussed with KAYLA DOOLEY 02/28/2017 at 17:10. Abdomen/Pelvis CT 02/28/17 17:12 Impression: No source for right flank pain identified. Results called and discussed with KAYLA DOOLEY, at 02/28/2017 18:02 General information for patients regarding this examination can be found at [email or web address]. If you have questions or comments about this report, please contact me at ([facility]) or [phone] ([facility]). Differential Diagnosis: Differential considered including but not limited to renal colic, ovarian torsion or cyst, ectopic, appendicitis, PID, UTI. - Data Points Laboratory Results: Laboratory Results 02/28/17 14:35 02/28/17 14:35 02/28/17 02/28/17 02/28/17 18:40 14:40 14:35 WBC RBC Hgb Hct MCV MCH MCHC RDW Plt Count MPV Neut % (Auto) Lymph % (Auto) [place] % (Auto) Eos % (Auto) Baso % (Auto) Nucleat RBC Rel Count Absolute Neuts (auto) Absolute Lymphs (auto) Absolute Monos (auto) Absolute Eos (auto) Absolute Basos (auto) Absolute Nucleated RBC Immature Gran % Immature Gran # Sodium Potassium Chloride Carbon Dioxide Anion Gap BUN Creatinine Estimated GFR Glucose Calcium Beta HCG, Qual NEGATIVE Urine Color PALE YELLOW Urine Appearance CLEAR Urine pH 7.0 (5.0-7.5) Ur Specific [place] 1.002 (1.002-1.030) Urine Protein NEGATIVE (NEGATIVE) Urine Ketones NEGATIVE (NEGATIVE) Urine Blood 2+ H (NEGATIVE) Urine Nitrate NEGATIVE (NEGATIVE) Urine Bilirubin NEGATIVE (NEGATIVE) Urine Urobilinogen NEGATIVE EU EU (0.2-1.0) Ur Leukocyte Esterase NEGATIVE (NEGATIVE) Urine RBC 3-5 /hpf H /hpf (0-3) Urine WBC 1-3 /hpf /hpf (0-3) Ur Epithelial Cells TRACE /lpf /lpf (NONE-1+) Urine Glucose NEGATIVE (NEGATIVE) C.trachomatis RNA (TMA) Pending N.gonorrhoeae RNA (TMA) Pending 02/28/17 02/28/17 14:35 14:35 WBC 7.13 10^3/uL 10^3/uL (3.80-9.50) RBC 4.68 10^6/uL 10^6/uL (4.18-5.33) Hgb 15.5 g/dL g/dL (12.6-16.3) Hct 44.1 % % (38.0-47.0) MCV 94.2 fL fL (81.5-99.8) MCH 33.1 pg pg (27.9-34.1) MCHC 35.1 g/dL g/dL (32.4-36.7) RDW 13.2 % % (11.5-15.2) Plt Count 266 10^3/uL 10^3/uL (150-400) MPV 9.1 fL fL (8.7-11.7) Neut % (Auto) 44.4 % % (39.3-74.2) Lymph % (Auto) 46.1 % H % (15.0-45.0) [place] % (Auto) 6.7 % % (4.5-13.0) Eos % (Auto) 1.3 % % (0.6-7.6) Baso % (Auto) 1.1 % % (0.3-1.7) Nucleat RBC Rel Count 0.0 % % (0.0-0.2) Absolute Neuts (auto) 3.16 10^3/uL 10^3/uL (1.70-6.50) Absolute Lymphs (auto) 3.29 10^3/uL H 10^3/uL (1.00-3.00) Absolute Monos (auto) 0.48 10^3/uL 10^3/uL (0.30-0.80) Absolute Eos (auto) 0.09 10^3/uL 10^3/uL (0.03-0.40) Absolute Basos (auto) 0.08 10^3/uL 10^3/uL (0.02-0.10) Absolute Nucleated RBC 0.00 10^3/uL 10^3/uL (0-0.01) Immature Gran % 0.4 % % (0.0-1.1) Immature Gran # 0.03 10^3/uL 10^3/uL (0.00-0.10) Sodium 140 mEq/L mEq/L (134-144) Potassium 4.0 mEq/L mEq/L (3.5-5.2) Chloride 103 mEq/L mEq/L (97-110) Carbon Dioxide 23 mEq/l mEq/l (22-31) Anion Gap 14 mEq/L mEq/L (8-16) BUN 11 mg/dL mg/dL (7-23) Creatinine 0.7 mg/dL mg/dL (0.6-1.0) Estimated GFR > 60 Glucose 74 mg/dL mg/dL (70-100) Calcium 9.5 mg/dL mg/dL (8.5-10.4) Beta HCG, Qual Urine Color Urine Appearance Urine pH Ur Specific [place] Urine Protein Urine Ketones Urine Blood Urine Nitrate Urine Bilirubin Urine Urobilinogen Ur Leukocyte Esterase Urine RBC Urine WBC Ur Epithelial Cells Urine Glucose C.trachomatis RNA (TMA) N.gonorrhoeae RNA (TMA) Medications Given: Discontinued Medications Hydromorphone HCl (Dilaudid) 0.5 mg IVP EDNOW ONE Stop: 02/28/17 15:29 Last Admin: 02/28/17 15:35 Dose: 0.5 mg Hydromorphone HCl (Dilaudid) 0.5 mg IVP EDNOW ONE Stop: 02/28/17 17:15 Last Admin: 02/28/17 17:22 Dose: 0.5 mg Sodium Chloride (Ns) 1,000 mls @ 0 mls/hr IV EDNOW ONE; Wide Open PRN Reason: Protocol Stop: 02/28/17 15:29 Last Admin: 02/28/17 15:31 Dose: 1,000 mls Lidocaine HCl 100 mg/ Sodium (Chloride) 110 mls @ 600 mls/hr IV EDNOW ONE Stop: 02/28/17 15:38 Last Admin: 02/28/17 16:46 Dose: 110 mls Ondansetron HCl (Zofran) 4 mg IVP EDNOW ONE Stop: 02/28/17 14:33 Last Admin: 02/28/17 14:42 Dose: 4 mg Ondansetron HCl (Zofran) 4 mg IVP EDNOW ONE Stop: 02/28/17 17:15 Last Admin: 02/28/17 17:22 Dose: 4 mg Departure - Departure Disposition: Home, Routine, Self-Care Clinical Impression: Abdominal pain Qualifiers: Abdominal location: lower abdomen, unspecified Qualified Code(s): R10.30 - Lower abdominal pain, unspecified Condition: Good Instructions: Abdominal Pain (ED) Additional Instructions: Call for STD test results tomorrow at [phone]. Referrals: NONE *PRIMARY CARE P,. [Primary Care Provider] - As per Instructions Ayesha Winchester, CNM [Certified Nurse Monitoring And Evaluation Advisor] - As per Instructions
[2017-02-28 15:44] VITALS: O2SAT 96
[2017-02-28 16:48] VITALS: RESP 16
[2017-02-28 18:30] VITALS: BP 105/66
[2017-02-28 18:47] VITALS: PULSE 79; TEMP 97.3
[2017-03-01 12:56] LABS: GC AMPLIFICATION GENPROBE NEGATIVE (NEGATIVE)
== END 2017-02-28 18:51 | disposition home or self-care (01) ==
DX: R10.30 Lower abdominal pain, unspecified (principal); E86.9 Volume depletion, unspecified
CPT/HCPCS: 96374; J1170; J2405

== ENCOUNTER 2017-03-21 18:25 | Emergency (ER) | payer MEDICAID ==
[2017-03-21] MEDS ORDERED: ONDANSETRON 4 MG/2 ML VIAL IVP ONE ×2 (19:02→19:10)
[2017-03-21] MEDS ORDERED: NS 1,000 ML IV ONE ×2 (19:02→19:10)
--- NOTE | 2017-03-21 19:27 | EDPHY ---
H & P Smoking Status: Never smoked Time Seen by Provider: 03/21/17 18:35 HPI/ROS: CHIEF COMPLAINT: Vomiting, diarrhea, abdominal pain, "positive blood cultures " HISTORY OF PRESENT ILLNESS: 31-year-old female presents to the emergency department stating that she got a call from the hospital that she was at 3 days ago stating that her "blood cultures were positive ". The patient was seen at [facility] on 03/18/2017 with pain in her right hip. The patient had a benign cyst removed from her right hip and had bone cement placed. She has had pain associated with this since that time. They were concerned about possible infection since she has been having intermittent fevers. She states "they stuck a needle in it ". The patient also noted that she had blood in her urine. She denies any reported trauma or injury. She states that yesterday she began vomiting and vomited all day yesterday as well as today. She states "I can not keep anything down and ". She has diffuse mild low back pain. She states that she still continues to have intermittent fevers. She was advised to come to the emergency department with her positive blood cultures. REVIEW OF SYSTEMS: Constitutional: Fever as above Eyes: No double or blurry vision. ENT: No sore throat. Respiratory: No cough, no shortness of breath. Cardiac: No chest pain. Gastrointestinal: Abdominal pain, vomiting, diarrhea Genitourinary: Hematuria. Denies dysuria or frequency with urination Musculoskeletal: Low back pain. No neck pain. Skin: No rashes. Neurological: No headache. (Meenakshi Dominguez) Past Medical/Surgical History: Benign cyst removed from the right hip August of 2016, tonsillectomy, chronic pain , ovarian cyst (Meenakshi Dominguez) Social History: Single and lives with her mother in [place] (Meenakshi Dominguez) Physical Exam: General Appearance: Alert, no distress. Afebrile. Nontoxic appearing. Eyes: Pupils equal and round. Extraocular motions are all intact. ENT: Mouth: Mucous membranes moist. Respiratory: No wheezing, rhonchi, or rales, lungs are clear to auscultation. Cardiovascular: Regular rate and rhythm. Gastrointestinal: Abdomen is soft. She has diffuse tenderness with palpation. There is no masses, rebound or guarding noted. She has bilateral CVA tenderness. Neurological: Alert and oriented x 3, cranial nerves II through XII grossly intact Skin: Warm and dry, no rashes. Well-healed surgical incision noted to the lateral aspect of the right hip. There is no redness or warmth or signs of cellulitis or infection. She has full range of motion of her upper lower extremities. Musculoskeletal: Nontender to palpate along the cervical, thoracic or lumbar spine. Neck is supple. Extremities: Full range of motion and no peripheral edema. Psychiatric: Patient is oriented X 3, there is no agitation. (Meenakshi Dominguez) Constitutional: Initial Vital Signs Temperature (C) 36.7 C 03/21/17 18:31 Heart Rate 70 03/21/17 18:31 Respiratory Rate 17 03/21/17 18:31 Blood Pressure 115/86 H 03/21/17 18:31 O2 Sat (%) 99 03/21/17 18:31 O2 Delivery Mode Room Air Allergies/Adverse Reactions: acetaminophen [From Tylenol Cold M-S Severe Daytim] Allergy (Verified 03/21/17 18:29) amoxicillin [Amoxicillin] Allergy (Verified 03/21/17 18:29) aspirin [Aspirin] Allergy (Verified 03/21/17 18:29) dexchlorpheniramine [Dexchlorpheniramine] Allergy (Verified 03/21/17 18:29) dextromethorphan HBr [From Tylenol Cold M-S Severe Daytim] Allergy (Verified 18:29) diphenhydramine HCl [From Benadryl] Allergy (Verified 03/21/17 18:29) erythromycin base [Erythromycin Base] Allergy (Verified 03/21/17 18:29) guaifenesin [From Tylenol Cold M-S Severe Daytim] Allergy (Verified 03/21/17 18: 29) ibuprofen [From Advil] Allergy (Verified 03/21/17 18:29) mushroom Allergy (Verified 03/21/17 18:29) Penicillins Allergy (Verified 03/21/17 18:29) phenylephrine HCl [From Tylenol Cold M-S Severe Daytim] Allergy (Verified 18:29) pseudoephedrine Allergy (Verified 03/21/17 18:29) pseudoephedrine HCl [From Sudafed] Allergy (Verified 03/21/17 18:29) Sulfa (Sulfonamide Antibiotics) Allergy (Verified 03/21/17 18:29) METHSCOLOLAMINE Allergy (Uncoded 08/08/10 13:30) Home Medications: Medication Instructions Recorded HYDROmorphone HCL [Dilaudid 4 mg 4 mg PO Q4HRS PRN 09/21/16 (*)] clonazePAM [klonoPIN (*)] 1 mg PO BID PRN 09/21/16 Medical Decision Making ED Course/Re-evaluation: 9:05 p.m. I had a long discussion and evaluation with the patient. Her lab work and vital signs are reassuring. She did give us permission to contact [facility] which we have done. The [facility] records state that her cultures are negative at 24 hours. She states that she has bilateral flank pain. Her urinalysis does not show any significant sign of infection. She does have red blood cells in her urine which I am very suspicious could be contaminant possibly purposefully. Her urine was very dilute and cold when she give us the sample. She was refusing to give another urine sample for comparison. We discussed CT scan and other options. Initially she told me that she would rather go home and does not want any further tests done. She was frustrated because we would not give her narcotics. After discussion with the nurse however she agree to stay and will provide another urine sample. I did evaluate her right hip wound. There is no swelling or erythema.. It is not tender. (Douglas Wills) 31-year-old female presents to the emergency department stating that she had positive blood cultures and was advised to come to the emergency department. Patient has numerous medication allergies. She also has a history of chronic pain and is prescribed hydromorphone 2 mg tablets, most recently was given 120 tablets on 02/28/2017. [facility] from [facility] were reviewed. She had a normal white blood cell count of 7000. Her CRP was normal. Blood cultures revealed no growth after 24 hours. The patient does not appear septic or ill. The patient is requesting nausea medicine and is requesting pain medication. Patient had an IV established and laboratory studies are pending including urinalysis. Patient was given IV normal saline and IV Zofran. Patient is allergic to anti-inflammatories, acetaminophen, and aspirin as she states this causes "swelling ". Blood culture results from [facility] were obtained with final culture in 1 bottle revealing Staph epidermidis, likely contaminant. Not clinically significant. I do not think the patient needs admission to the hospital or treatment for this. The patient was reassured. We did attempt to get another urine specimen, however the patient states that she is unable to urinate. The patient is chronic pain and she is on hydromorphone daily. She understands that narcotic medications would not be provided in the emergency department. She would need close follow-up with her primary care provider for this. The patient states that she has been vomiting since Saturday, yesterday, and has not been able to keep anything down. She has been observed for over 3.5 hours has had no episodes of vomiting in the emergency department. Patient is unable to provide a urine specimen. Patient requests to be discharged home. ( Meenakshi Dominguez) Differential Diagnosis: Including but not limited to urinary tract infection, pyelonephritis, kidney stone, acute appendicitis, sepsis, dehydration, electrolyte abnormality (Meenakshi Dominguez) - Data Points Laboratory Results: Laboratory Results 03/21/17 19:30 03/21/17 19:30 03/21/17 03/21/17 03/21/17 20:30 19:30 19:30 WBC RBC Hgb Hct MCV MCH MCHC RDW Plt Count MPV Neut % (Auto) Lymph % (Auto) [place] % (Auto) Eos % (Auto) Baso % (Auto) Nucleat RBC Rel Count Absolute Neuts (auto) Absolute Lymphs (auto) Absolute Monos (auto) Absolute Eos (auto) Absolute Basos (auto) Absolute Nucleated RBC Immature Gran % Immature Gran # Sodium 141 mEq/L mEq/L (134-144) Potassium 4.8 mEq/L mEq/L (3.5-5.2) Chloride 107 mEq/L mEq/L (97-110) Carbon Dioxide 22 mEq/l mEq/l (22-31) Anion Gap 12 mEq/L mEq/L (8-16) BUN 9 mg/dL mg/dL (7-23) Creatinine 0.7 mg/dL mg/dL (0.6-1.0) Estimated GFR > 60 Glucose 84 mg/dL mg/dL (70-100) Calcium 9.7 mg/dL mg/dL (8.5-10.4) Total Bilirubin 1.4 mg/dL mg/dL (0.1-1.4) Conjugated Bilirubin 0.5 mg/dL mg/dL (0.0-0.5) Unconjugated Bilirubin 0.9 mg/dL mg/dL (0.0-1.1) AST 38 IU/L IU/L (14-46) ALT 27 IU/L IU/L (9-52) Alkaline Phosphatase 78 IU/L IU/L (38-126) Total Protein 7.9 g/dL g/dL (6.3-8.2) Albumin 4.6 g/dL g/dL (3.5-5.0) Lipase 75 IU/L IU/L (23-300) Beta HCG, Qual NEGATIVE Specimen Hemolysis 141 Urine Color PALE YELLOW Urine Appearance CLEAR Urine pH 7.0 (5.0-7.5) Ur Specific [place] 1.002 (1.002-1.030) Urine Protein NEGATIVE (NEGATIVE) Urine Ketones NEGATIVE (NEGATIVE) Urine Blood 3+ H (NEGATIVE) Urine Nitrate NEGATIVE (NEGATIVE) Urine Bilirubin NEGATIVE (NEGATIVE) Urine Urobilinogen NEGATIVE EU EU (0.2-1.0) Ur Leukocyte Esterase NEGATIVE (NEGATIVE) Urine RBC 15-25 /hpf H /hpf (0-3) Urine WBC 3-5 /hpf H /hpf (0-3) Ur Epithelial Cells TRACE /lpf /lpf (NONE-1+) Urine Mucus TRACE /lpf /lpf (NONE-1+) Urine Glucose NEGATIVE (NEGATIVE) Ethyl Alcohol < 10 mg/dL mg/dL (0-10) 03/21/17 19:30 WBC 6.02 10^3/uL 10^3/uL (3.80-9.50) RBC 4.35 10^6/uL 10^6/uL (4.18-5.33) Hgb 14.3 g/dL g/dL (12.6-16.3) Hct 40.8 % % (38.0-47.0) MCV 93.8 fL fL (81.5-99.8) MCH 32.9 pg pg (27.9-34.1) MCHC 35.0 g/dL g/dL (32.4-36.7) RDW 12.1 % % (11.5-15.2) Plt Count 219 10^3/uL 10^3/uL (150-400) MPV 9.8 fL fL (8.7-11.7) Neut % (Auto) 50.3 % % (39.3-74.2) Lymph % (Auto) 38.4 % % (15.0-45.0) [place] % (Auto) 8.3 % % (4.5-13.0) Eos % (Auto) 1.8 % % (0.6-7.6) Baso % (Auto) 1.0 % % (0.3-1.7) Nucleat RBC Rel Count 0.0 % % (0.0-0.2) Absolute Neuts (auto) 3.03 10^3/uL 10^3/uL (1.70-6.50) Absolute Lymphs (auto) 2.31 10^3/uL 10^3/uL (1.00-3.00) Absolute Monos (auto) 0.50 10^3/uL 10^3/uL (0.30-0.80) Absolute Eos (auto) 0.11 10^3/uL 10^3/uL (0.03-0.40) Absolute Basos (auto) 0.06 10^3/uL 10^3/uL (0.02-0.10) Absolute Nucleated RBC 0.00 10^3/uL 10^3/uL (0-0.01) Immature Gran % 0.2 % % (0.0-1.1) Immature Gran # 0.01 10^3/uL 10^3/uL (0.00-0.10) Sodium Potassium Chloride Carbon Dioxide Anion Gap BUN Creatinine Estimated GFR Glucose Calcium Total Bilirubin Conjugated Bilirubin Unconjugated Bilirubin AST ALT Alkaline Phosphatase Total Protein Albumin Lipase Beta HCG, Qual Specimen Hemolysis Urine Color Urine Appearance Urine pH Ur Specific [place] Urine Protein Urine Ketones Urine Blood Urine Nitrate Urine Bilirubin Urine Urobilinogen Ur Leukocyte Esterase Urine RBC Urine WBC Ur Epithelial Cells Urine Mucus Urine Glucose Ethyl Alcohol Medications Given: Discontinued Medications Sodium Chloride (Ns) 1,000 mls @ 0 mls/hr IV ONCE ONE; Wide Open PRN Reason: Protocol Stop: 03/21/17 19:03 Last Admin: 03/21/17 19:35 Dose: 1,000 mls Sodium Chloride (Ns) 1,000 mls @ 0 mls/hr IV ONCE ONE PRN Reason: Wide Open Stop: 03/21/17 19:11 Last Admin: 03/21/17 19:11 Dose: Not Given Ondansetron HCl (Zofran) 4 mg IVP EDNOW ONE Stop: 03/21/17 19:03 Last Admin: 03/21/17 19:11 Dose: Not Given Ondansetron HCl (Zofran) 4 mg IVP EDNOW ONE Stop: 03/21/17 19:11 Last Admin: 03/21/17 19:36 Dose: 4 mg Departure - Departure Disposition: Home, Routine, Self-Care Clinical Impression: Abdominal pain Qualifiers: Abdominal location: generalized Qualified Code(s): R10.84 - Generalized abdominal pain Vomiting Qualifiers: Vomiting type: unspecified Vomiting Intractability: non-intractable Nausea presence: with nausea Qualified Code(s): R11.2 - Nausea with vomiting, unspecified Condition: Good Instructions: Acute Nausea and Vomiting (ED), Acute Abdominal Pain (ED) Additional Instructions: Abdominal Pain: Return to the Emergency Department immediately for increasing pain, fever, vomiting, or if not completely better in 8-12 hours. Referrals: Danna Hu MD [Primary Care Provider] - 1 day without fail
[2017-03-21 19:56] LABS: % IMMATURE GRANULYOCYTES 0.2 % (0.0-1.1); ABSOLUTE IMMATURE GRANULOCYTES 0.01 10^3/uL (0.00-0.10); ADD DIFF? NO; ADD MORPH? NO; ADD SCAN? NO; ATYPICAL LYMPHOCYTE FLAG 30 (0-99); FRAGMENT RBC FLAG 0 (0-99); HEMATOCRIT 40.8 % (38.0-47.0); HEMOGLOBIN 14.3 g/dL (12.6-16.3); LEFT SHIFT FLG 0 (0-99); LIPEMIA HEMOLYSIS FLAG 90 (0-99); MEAN CELL HEMOGLOBIN 32.9 pg (27.9-34.1); MEAN CELL VOLUME 93.8 fL (81.5-99.8); MEAN PLATELET VOLUME 9.8 fL (8.7-11.7); PLATELET CLUMPS FLAG 10 (0-99); PLATELET COUNT 219 10^3/uL (150-400); RED BLOOD CELL COUNT 4.35 10^6/uL (4.18-5.33); RED CELL DISTRIBUTION WIDTH 12.1 % (11.5-15.2)
[2017-03-21 20:09] LABS: ALANINE AMINOTRANSFERASE 27 IU/L (9-52); ALBUMIN 4.6 g/dL (3.5-5.0); ALKALINE PHOSPHATASE 78 IU/L (38-126); ANION GAP 12 mEq/L (8-16); ASPARTATE AMINOTRANSFERASE 38 IU/L (14-46); BILIRUBIN,TOTAL 1.4 mg/dL (0.1-1.4); BILIRUBIN-CONJUGATED 0.5 mg/dL (0.0-0.5); BILIRUBIN-UNCONJUGATED 0.9 mg/dL (0.0-1.1); CALCIUM 9.7 mg/dL (8.5-10.4); CARBON DIOXIDE 22 mEq/l (22-31); CHLORIDE 107 mEq/L (97-110); CREATININE 0.7 mg/dL (0.6-1.0); ETHANOL SERUM < 10 mg/dL (0-10); GLOMERULAR FILTRATION RATE > 60; GLUCOSE 84 mg/dL (70-100); POTASSIUM 4.8 mEq/L (3.5-5.2); SODIUM 141 mEq/L (134-144); SPECIMEN HEMOLYSIS 141; TOTAL PROTEIN 7.9 g/dL (6.3-8.2)
[2017-03-21 20:44] VITALS: O2SAT 98
[2017-03-21 20:51] LABS: COLOR PALE YELLOW; LEUKOCYTE ESTERASE,URINE NEGATIVE (NEGATIVE); NITRITE,URINE NEGATIVE (NEGATIVE)
[2017-03-21 20:53] LABS: MUCUS TRACE /lpf (NONE-1+); RBC,URINE 15-25 /hpf (0-3)
[2017-03-21 22:09] VITALS: BP 109/74; PULSE 58; RESP 16; TEMP 98.6
== END 2017-03-21 22:08 | disposition home or self-care (01) ==
DX: R11.2 Nausea with vomiting, unspecified (principal); R10.84 Generalized abdominal pain; E86.9 Volume depletion, unspecified
CPT/HCPCS: 96374; G0480; J2405

== ENCOUNTER 2017-03-25 17:25 | Emergency (ER) | payer MEDICAID ==
[2017-03-25 17:34] VITALS: TEMP 97.9
[2017-03-25] MEDS ORDERED: NS 1,000 ML IV ONE (19:46)
[2017-03-25] MEDS ORDERED: ONDANSETRON 4 MG/2 ML VIAL IVP ONE (19:46)
[2017-03-25] MEDS ORDERED: KETAMINE 100 MG/10 ML SYR IVP ONE (19:47)
--- NOTE | 2017-03-25 20:11 | EDPHY ---
General - History Smoking Status: Never smoked Narrative: CHIEF COMPLAINT: Multiple complaints HISTORY OF PRESENT ILLNESS: Patient complains that "everything is wrong, my life is falling apart." She complains of headache, nausea, vomiting, flank pain, lower abdominal pain, malaise and fever. Symptoms have been going on "for a while." No neck pain or stiffness. She associates these things with some confusion throughout the day, difficulty describing her complaints. She has had chronic abdominal pain with history of ovarian cyst. She is not sure if this is related. She has no dysuria but did note some blood in her urine earlier today. No trauma or injury. Patient is well established in this emergency department and had an extensive workup 4 days ago. She says that she has contacted her primary care physician, but that they have not been able to get her in. No associated complaints or modifying factors. REVIEW OF SYSTEMS: Ten systems reviewed and are negative unless otherwise noted in the HPI PCP: Dr. Danna Hu SPECIALISTS: Orthopedist Dr. Timmons Bi Lead Dr. Brown PAST MEDICAL HISTORY: Extensive. Reviewed with patient. Significant for anxiety, chronic pain, ovarian cysts PAST SURGICAL HISTORY: Bone marrow graft, tonsillectomy SOCIAL HISTORY: Nonsmoker. FAMILY HISTORY: Noncontributory EXAMINATION General Appearance: Alert, no distress Head: normocephalic, atraumatic Eyes: Pupils equal and round, no conjunctival pallor or injection ENT, Mouth: Mucous membranes moist. Airway patent Neck: Normal inspection, supple, non-tender. Painless range of motion in all planes. No nuchal rigidity or meningismus. Respiratory: Lungs are clear to auscultation. No wheezing, rhonchi or crackles Cardiovascular: Regular rate and rhythm. No murmur Gastrointestinal: Abdomen is soft and nondistended. There is tenderness and guarding on the right side of the abdomen. Right CVA tenderness that is mild to moderate. No rigidity. Neurological: A&O, nonfocal, strength is symmetric in all 4 limbs. Skin: Warm and dry, no rash. No petechiae or purpura Extremities: Nontender, symmetric range of motion of extremities. Psychiatric: Anxious. DIFFERENTIAL DIAGNOSES: Including but not limited to renal colic, ovarian cyst, ovarian torsion, colitis , diverticulitis, appendicitis, ureteral stone, malingering MDM: 7:45 p.m. Multiple complaints including headache, right flank pain, right abdominal pain, nausea, vomiting, difficulty thinking, hematuria. There is no nuchal rigidity or meningismus. Vital signs were well within normal limits. Examination suggest pain out of proportion to examination. Given that she does have right- sided abdominal pain with normal ultrasound and CT scan 4 days ago. I have reviewed that note in entirety. I have ordered ultrasounds to avoid repeat radiation for her. Patient is also been extensively counseled by previous physician here regarding the concern for narcotic-seeking behavior here, recommended that she be placed on the no narcotic list here at this emergency department. There is also documentation that there was high suspicion that the patient was intentionally adding blood to her urine. I do not want to disregard her pain, but I do have concern that the patient is exhibiting drug- seeking behavior. Thus I have ordered ultrasound and extensive laboratory studies. I will start with IV ketamine and Zofran in lieu of narcotics. 8:39 p.m. CBC is unremarkable. Remainder laboratory studies are pending. 9:13 p.m. Patient is currently having her ultrasounds performed. Influenza negative. [place] test negative. Chemistry is completely unremarkable. 9:29 p.m. Urinalysis suggest contaminant with no definite signs of infection. I have ordered a urine culture. Patient is still in ultrasound. 9:40 p.m. Contacted by radiologist Dr. Galloway. Renal ultrasound negative for hydronephrosis or obstruction. Pelvic ultrasound reviewed with possible small ruptured physiologic cyst. Appendix not visualized on the scan. 9:40 p.m. Patient re-evaluated. She is asking to be discharged home. I discussed the normal laboratory studies. I discussed the ultrasound findings. Her abdominal exam remains benign. I do not feel that she has developed acute appendicitis in 4 days since her normal CT scan. She is in no acute distress. I do feel that the patient has real pain, but but there is concern for secondary gain as patient has multiple presentations with multiple workups. We discussed this and I recommend she follow up with primary care physician again to see if there are any further test that she would recommend. We discussed ED precautions. She is discharged home with benign abdominal examination, no active vomiting here and vital signs stable. (Irvin Ferrer) The patient was evaluated and managed by the physician clinical education assistant. I have reviewed this chart and I agree with the findings and plan of care as documented , as indicated by my signature. I am the secondary supervising physician. ( Tracy Painter) - Objective Vital Signs: Initial Vital Signs Temperature (C) 36.6 C 03/25/17 17:31 Heart Rate 85 03/25/17 17:31 Respiratory Rate 16 03/25/17 17:31 Blood Pressure 109/67 03/25/17 17:31 O2 Sat (%) 96 03/25/17 17:31 O2 Delivery Mode Room Air Allergies/Adverse Reactions: acetaminophen [From Tylenol Cold M-S Severe Daytim] Allergy (Verified 03/21/17 18:29) amoxicillin [Amoxicillin] Allergy (Verified 03/21/17 18:29) aspirin [Aspirin] Allergy (Verified 03/21/17 18:29) dexchlorpheniramine [Dexchlorpheniramine] Allergy (Verified 03/21/17 18:29) dextromethorphan HBr [From Tylenol Cold M-S Severe Daytim] Allergy (Verified 18:29) diphenhydramine HCl [From Benadryl] Allergy (Verified 03/21/17 18:29) erythromycin base [Erythromycin Base] Allergy (Verified 03/21/17 18:29) guaifenesin [From Tylenol Cold M-S Severe Daytim] Allergy (Verified 03/21/17 18: 29) ibuprofen [From Advil] Allergy (Verified 03/21/17 18:29) mushroom Allergy (Verified 03/21/17 18:29) Penicillins Allergy (Verified 03/21/17 18:29) phenylephrine HCl [From Tylenol Cold M-S Severe Daytim] Allergy (Verified 18:29) pseudoephedrine Allergy (Verified 03/21/17 18:29) pseudoephedrine HCl [From Sudafed] Allergy (Verified 03/21/17 18:29) Sulfa (Sulfonamide Antibiotics) Allergy (Verified 03/21/17 18:29) METHSCOLOLAMINE Allergy (Uncoded 08/08/10 13:30) Home Medications: Medication Instructions Recorded HYDROmorphone HCL [Dilaudid 4 mg 4 mg PO Q4HRS PRN 09/21/16 (*)] clonazePAM [klonoPIN (*)] 1 mg PO BID PRN 09/21/16 Laboratory Results: Laboratory Results 03/25/17 20:00 03/25/17 20:00 Medications Given: Discontinued Medications Sodium Chloride (Ns) 1,000 mls @ 0 mls/hr IV EDNOW ONE; Wide Open PRN Reason: Protocol Stop: 03/25/17 19:47 Last Admin: 03/25/17 19:56 Dose: 1,000 mls Ketamine HCl (Ketamine) 10 mg IVP EDNOW ONE Stop: 03/25/17 19:48 Last Admin: 03/25/17 20:10 Dose: 10 mg Lorazepam (Ativan Injection) 1 mg IVP EDNOW ONE Stop: 03/25/17 20:19 Last Admin: 03/25/17 20:21 Dose: 1 mg Ondansetron HCl (Zofran) 4 mg IVP EDNOW ONE Stop: 03/25/17 19:47 Last Admin: 03/25/17 19:57 Dose: 4 mg Ondansetron HCl (Zofran Odt 4 Mg Prepack#2) 1 btl TAKEHOME EDNOW ONE Stop: 03/25/17 22:03 Last Admin: 03/25/17 22:19 Dose: 1 btl Departure - Departure Disposition: Home, Routine, Self-Care Clinical Impression: Nausea & vomiting Abdominal pain Qualifiers: Abdominal location: generalized Qualified Code(s): R10.84 - Generalized abdominal pain Condition: Good Instructions: Ondansetron (By mouth), Acute Nausea and Vomiting (ED), Chronic Abdominal Pain (ED) Additional Instructions: 1. Zofran as prescribed as needed 2. Contact her primary care physician for outpatient management 3. ED precautions as discussed Referrals: Danna Hu MD [Primary Care Provider] - As per Instructions
[2017-03-25] MEDS ORDERED: LORazepam 2 MG/ML INJ IVP ONE (20:18)
[2017-03-25 20:20] LABS: % IMMATURE GRANULYOCYTES 0.2 % (0.0-1.1); ABSOLUTE IMMATURE GRANULOCYTES 0.02 10^3/uL (0.00-0.10); ADD DIFF? NO; ADD MORPH? NO; ADD SCAN? NO; ATYPICAL LYMPHOCYTE FLAG 10 (0-99); FRAGMENT RBC FLAG 0 (0-99); HEMATOCRIT 46.9 % (38.0-47.0); HEMOGLOBIN 16.5 g/dL (12.6-16.3); LEFT SHIFT FLG 0 (0-99); LIPEMIA HEMOLYSIS FLAG 90 (0-99); MEAN CELL HEMOGLOBIN 32.7 pg (27.9-34.1); MEAN CELL HEMOGLOBIN CONCENTR. 35.2 g/dL (32.4-36.7); MEAN CELL VOLUME 92.9 fL (81.5-99.8); MEAN PLATELET VOLUME 9.5 fL (8.7-11.7); PLATELET CLUMPS FLAG 10 (0-99); PLATELET COUNT 297 10^3/uL (150-400); RED BLOOD CELL COUNT 5.05 10^6/uL (4.18-5.33); RED CELL DISTRIBUTION WIDTH 12.8 % (11.5-15.2)
[2017-03-25 20:33] LABS: INR 1.04 (0.83-1.16); PROTIME(PATIENT) 13.5 SEC (12.0-15.0)
[2017-03-25 20:36] LABS: BHCG-QUALITATIVE NEGATIVE; MONO TEST NEGATIVE (NEGATIVE)
[2017-03-25 20:47] LABS: ALANINE AMINOTRANSFERASE 27 IU/L (9-52); ALKALINE PHOSPHATASE 83 IU/L (38-126); ANION GAP 14 mEq/L (8-16); ASPARTATE AMINOTRANSFERASE 29 IU/L (14-46); BILIRUBIN,TOTAL 0.5 mg/dL (0.1-1.4); BILIRUBIN-CONJUGATED 0.2 mg/dL (0.0-0.5); BILIRUBIN-UNCONJUGATED 0.3 mg/dL (0.0-1.1); CALCIUM 9.9 mg/dL (8.5-10.4); CARBON DIOXIDE 23 mEq/l (22-31); CHLORIDE 100 mEq/L (97-110); CREATININE 0.7 mg/dL (0.6-1.0); GLOMERULAR FILTRATION RATE > 60; GLUCOSE 75 mg/dL (70-100); POTASSIUM 4.3 mEq/L (3.5-5.2); SODIUM 137 mEq/L (134-144); TOTAL PROTEIN 8.8 g/dL (6.3-8.2)
[2017-03-25 20:51] VITALS: O2SAT 95
[2017-03-25 20:57] LABS: COLOR YELLOW; LEUKOCYTE ESTERASE,URINE TRACE (NEGATIVE); NITRITE,URINE NEGATIVE (NEGATIVE)
[2017-03-25 20:59] LABS: MUCUS TRACE /lpf (NONE-1+)
[2017-03-25 21:02] LABS: RBC,URINE NONE SEEN /hpf (0-3)
[2017-03-25] MEDS ORDERED: ONDANSETRON 4MG PREPACK#2 BTL TAKEHOME ONE (22:02)
[2017-03-25 22:23] VITALS: BP 105/68; PULSE 87; RESP 16
== END 2017-03-25 22:22 | disposition home or self-care (01) ==
DX: R11.2 Nausea with vomiting, unspecified (principal); R10.84 Generalized abdominal pain; E86.9 Volume depletion, unspecified
CPT/HCPCS: 80305; 96374; J2060; J2405

== ENCOUNTER 2017-05-09 23:22 | Emergency (ER) | payer MEDICAID ==
[2017-05-10] MEDS ORDERED: NS 1,000 ML IV ONE (00:04)
[2017-05-10] MEDS ORDERED: SUMAtriptan 6 MG/0.5 ML VIAL SC ONE (00:06)
[2017-05-10] MEDS ORDERED: PROMETHAZINE HCL 25 MG/ML INJ IVP ONE (00:06)
--- NOTE | 2017-05-10 00:28 | EDPHY ---
H & P Stated Complaint: intoxicated and migraine Time Seen by Provider: 05/09/17 23:37 HPI/ROS: HPI The patient presents with headache, vision changes, dizziness which began at about 10:00 p.m. tonight. She had gone to school today where she is working on a degree. She was upset because she found out that she would not graduate this semester. She came home and her mother thought she was not acting right. The patient says that she feels dizzy, worse upon standing. She is experiencing hot and cold flashes. She says the left side of her face is tingling and she cannot see much out of her left eye. She describes seeing a zigzag and some fuzziness. She also feels as if her balance is off. She does have a history of ocular migraines and this feels similar though much worse.. REVIEW OF SYSTEMS Constitutional: No fever, no chills. Eyes: No discharge. ENT: No sore throat. Cardiovascular: No chest pain, no palpitations. Respiratory: No cough, no shortness of breath. Gastrointestinal: No abdominal pain, no vomiting. Genitourinary: No hematuria. Musculoskeletal: No back pain. Skin: No rashes. Neurological: Positive for headache. PMHx: Anxiety, chronic pain Soc Hx: Lives with her mother PHYSICAL General Appearance: Alert, no distress Eyes: Pupils equal and round no pallor or injection ENT, Mouth: Mucous membranes moist Respiratory: There are no retractions, lungs are clear to auscultation Cardiovascular: Regular rate and rhythm Gastrointestinal: Abdomen is soft and non-tender, no masses, bowel sounds normal Neurological: Alert and oriented x3, some slurring of her words, cranial nerves 2-12 are intact, however she reports a zigzag when she looks out of her left eye, there are no visual field cuts, blink to threat is present, there is normal finger to nose testing, there is normal tandem gait, there is no Romberg Skin: Warm and dry, no rashes Musculoskeletal: Neck is supple non tender Extremities: symmetrical, full range of motion Psychiatric: Patient is oriented X 3, there is no agitation Source: Patient Exam Limitations: No limitations - Personal History LMP (Females 10-55): 15-21 Days Ago Current Tetanus/Diphtheria Vaccine: Yes Tetanus Vaccine Date: 2010 - Medical/Surgical History Hx Asthma: No Hx Chronic Respiratory Disease: No Hx Diabetes: No Hx Cardiac Disease: No Hx Renal Disease: No Hx Cirrhosis: No Hx Alcoholism: No Hx HIV/AIDS: No Hx Splenectomy or Spleen Trauma: No Other PMH: PMHx: anxiety, ovarian cyst, fibroids, chronic pain. PSHx: bone marrow graft, tonsillectomy on 2015 - Social History Smoking Status: Never smoked Constitutional: Initial Vital Signs Temperature (C) 37.4 C 05/09/17 23:24 Heart Rate 131 H 05/09/17 23:24 Respiratory Rate 16 05/09/17 23:24 Blood Pressure 109/90 H 05/09/17 23:24 O2 Sat (%) 97 05/09/17 23:24 Allergies/Adverse Reactions: acetaminophen [From Tylenol Cold M-S Severe Daytim] Allergy (Verified 05/09/17 23:30) amoxicillin [Amoxicillin] Allergy (Verified 05/09/17 23:30) aspirin [Aspirin] Allergy (Verified 05/09/17 23:30) dexchlorpheniramine [Dexchlorpheniramine] Allergy (Verified 05/09/17 23:30) dextromethorphan HBr [From Tylenol Cold M-S Severe Daytim] Allergy (Verified 03/16 23:30) diphenhydramine HCl [From Benadryl] Allergy (Verified 05/09/17 23:30) erythromycin base [Erythromycin Base] Allergy (Verified 05/09/17 23:30) guaifenesin [From Tylenol Cold M-S Severe Daytim] Allergy (Verified 05/09/17 23: 30) ibuprofen [From Advil] Allergy (Verified 05/09/17 23:30) mushroom Allergy (Verified 05/09/17 23:30) Penicillins Allergy (Verified 05/09/17 23:30) phenylephrine HCl [From Tylenol Cold M-S Severe Daytim] Allergy (Verified 23:30) pseudoephedrine Allergy (Verified 05/09/17 23:30) pseudoephedrine HCl [From Sudafed] Allergy (Verified 05/09/17 23:30) Sulfa (Sulfonamide Antibiotics) Allergy (Verified 05/09/17 23:30) METHSCOLOLAMINE Allergy (Uncoded 08/08/10 13:30) Home Medications: Medication Instructions Recorded HYDROmorphone HCL [Dilaudid 4 mg 4 mg PO Q4HRS PRN 09/21/16 (*)] clonazePAM [klonoPIN (*)] 1 mg PO BID PRN 09/21/16 Medical Decision Making - Diagnostics Imaging Results: CT head without contrast is unremarkable, discussed with Dr. Michel of Radiology. Differential Diagnosis: 31-year-old female with history of chronic pain, anxiety, multiple ER visits and some concern for opiate seeking behavior raised on past visits, presents from home with her mother for a headache, dizziness, visual field changes. She does have a history of ocular migraine and says this feels similar but worse. On exam, she is uncomfortable appearing, her neurologic exam is unremarkable. Differential diagnosis includes ocular migraine, subarachnoid hemorrhage, less likely ischemic stroke. In the emergency department patient was given IV fluids, migraine medications. Her headache improved somewhat. CT scan of her head was unremarkable. However , alcohol level was quite elevated at 250. A confronted her about this and she did admit to drinking several martinis tonight. I think this could be contributing to a lot of her symptoms. It may be that alcohol has induced he migraine. I feel comfortable sending her home and she will be discharged. I have asked that she follow up with her doctor if she is not better. - Data Points Laboratory Results: Laboratory Results 05/10/17 00:33 05/10/17 00:33 05/10/17 05/10/17 00:33 00:33 WBC 9.07 10^3/uL 10^3/uL (3.80-9.50) RBC 5.08 10^6/uL 10^6/uL (4.18-5.33) Hgb 16.8 g/dL H g/dL (12.6-16.3) Hct 47.1 % H % (38.0-47.0) MCV 92.7 fL fL (81.5-99.8) MCH 33.1 pg pg (27.9-34.1) MCHC 35.7 g/dL g/dL (32.4-36.7) RDW 12.4 % % (11.5-15.2) Plt Count 274 10^3/uL 10^3/uL (150-400) MPV 9.1 fL fL (8.7-11.7) Neut % (Auto) 53.5 % % (39.3-74.2) Lymph % (Auto) 38.6 % % (15.0-45.0) [place] % (Auto) 5.4 % % (4.5-13.0) Eos % (Auto) 0.9 % % (0.6-7.6) Baso % (Auto) 1.2 % % (0.3-1.7) Nucleat RBC Rel Count 0.0 % % (0.0-0.2) Absolute Neuts (auto) 4.85 10^3/uL 10^3/uL (1.70-6.50) Absolute Lymphs (auto) 3.50 10^3/uL H 10^3/uL (1.00-3.00) Absolute Monos (auto) 0.49 10^3/uL 10^3/uL (0.30-0.80) Absolute Eos (auto) 0.08 10^3/uL 10^3/uL (0.03-0.40) Absolute Basos (auto) 0.11 10^3/uL H 10^3/uL (0.02-0.10) Absolute Nucleated RBC 0.00 10^3/uL 10^3/uL (0-0.01) Immature Gran % 0.4 % % (0.0-1.1) Immature Gran # 0.04 10^3/uL 10^3/uL (0.00-0.10) Sodium 147 mEq/L H mEq/L (135-145) Potassium 4.2 mEq/L mEq/L (3.5-5.2) Chloride 111 mEq/L H mEq/L (97-110) Carbon Dioxide 16 mEq/l L mEq/l (22-31) Anion Gap 20 mEq/L H mEq/L (8-16) BUN 10 mg/dL mg/dL (7-23) Creatinine 0.7 mg/dL mg/dL (0.6-1.0) Estimated GFR > 60 Glucose 85 mg/dL mg/dL (70-100) Calcium 10.3 mg/dL mg/dL (8.5-10.4) Ethyl Alcohol 253 mg/dL H mg/dL (0-10) Medications Given: Discontinued Medications Sodium Chloride (Ns) 1,000 mls @ 0 mls/hr IV EDNOW ONE; Wide Open PRN Reason: Protocol Stop: 05/10/17 00:05 Last Admin: 05/10/17 00:38 Dose: 1,000 mls Promethazine HCl (Phenergan) 12.5 mg IVP EDNOW ONE Stop: 05/10/17 00:07 Last Admin: 05/10/17 00:38 Dose: 12.5 mg Sumatriptan Succinate (Imitrex Sc Injection) 6 mg SC EDNOW ONE Stop: 05/10/17 00:07 Last Admin: 05/10/17 00:39 Dose: 6 mg Departure - Departure Disposition: Home, Routine, Self-Care Clinical Impression: Alcoholic intoxication Qualifiers: Complication of substance-induced condition: with delirium Qualified Code(s): F10.921 - Alcohol use, unspecified with intoxication delirium Headache Qualifiers: Headache type: unspecified Headache chronicity pattern: acute headache Intractability: not intractable Qualified Code(s): R51 - Headache Condition: Good Instructions: Migraine Headache (ED), Alcohol Intoxication (ED) Additional Instructions: Please do not mix pills and alcohol. This can be very dangerous and lead to . Please follow-up with your primary care doctor in 1-2 days. Referrals: Danna Hu MD [Primary Care Provider] - As per Instructions
[2017-05-10 00:51] LABS: PLATELET COUNT 274 10^3/uL (150-400)
[2017-05-10 02:05] VITALS: BP 124/91; PULSE 110; RESP 18; TEMP 98.1; O2SAT 94
== END 2017-05-10 01:50 | disposition home or self-care (01) ==
DX: R51 Headache (principal); F10.921 Alcohol use, unspecified with intoxication delirium; E86.9 Volume depletion, unspecified
CPT/HCPCS: 96374; G0480; J2550; J3030

== ENCOUNTER 2017-11-04 02:02 | Emergency (ER) | payer MEDICAID ==
[2017-11-04 02:12] VITALS: BP 115/83
[2017-11-04] MEDS ORDERED: oxyCODONE IR 5 MG TAB PO ONE (02:19)
[2017-11-04] MEDS ORDERED: ONDANSETRON DISINTEGRATING 4 MG TAB PO ONE (02:28)
--- NOTE | 2017-11-04 02:35 | EDPHY ---
H & P Stated Complaint: r wrist pain Time Seen by Provider: 11/04/17 02:34 HPI/ROS: HPI CHIEF COMPLAINT: Right wrist pain, right hand pain HISTORY OF PRESENT ILLNESS: 32-year-old female, presents emergency room stating that she injured her right hand and right wrist. She was trying to get a pig out of a crate and with some type of manipulation injured her right wrist and right hand mainly over the 4rd metacarpal. Hospital over extension of the wrist and 4th metacarpal region or 4th digit She is neurovascularly intact. This happened earlier today. She has full range of motion of her wrist and hand but discomfort. No significant swelling on exam. There is no snuffbox tenderness. Good sensation. Past Medical History: Anxiety, ovarian cyst Past Surgical History: Tonsillectomy Social History: Denies daily use of drugs alcohol tobacco Family History: Noncontributory ROS REVIEW OF SYSTEMS: A comprehensive 10 point review of systems is otherwise negative aside from elements mentioned in the history of present illness. Exam Constitutional appears well nontoxic no acute distress triage nursing summary reviewed, vital signs reviewed, awake/alert. Eyes normal conjunctivae and sclera, EOMI, PERRLA. HENT normal inspection, atraumatic, moist mucus membranes, no epistaxis, neck supple/ no meningismus, no raccoon eyes. Respiratory clear to auscultation bilaterally, normal breath sounds, no respiratory distress, no wheezing. Cardiovascular rate normal, regular rhythm, no murmur, no edema, distal pulses normal. Gastrointestinal soft, non-tender, no rebound, no guarding, normal bowel sounds, no distension, no pulsatile mass. Genitourinary no CVA tenderness. Musculoskeletal right wrist: Good radial pulse, good cap refill, no snuffbox tenderness, mild tenderness palpation over the distal radius and distal ulnar, no significant swelling noted. Additionally mild tenderness palpation over the dorsum of the right hand over the 4th metacarpal. Full range of motion, good cap refill, normal sensation, good author agent strength. no midline vertebral tenderness, full range of motion, no calf swelling, no tenderness of extremities, no meningismus, good pulses, neurovascularly intact. Skin pink, warm, & dry, no rash, skin atraumatic. Neurologic awake, alert and oriented x 3, AAOx3, moves all 4 extremities equally, motor intact, sensory intact, CN II-XII intact, normal cerebellar, normal vision, normal speech. Psychiatric normal mood/affect. Heme/Lymph/Immune no lymphadenopathy. Differential Diagnosis: Includes but is not limited to in a particular order right wrist sprain, and hand sprain, hand contusion Medical Decision Making: Plan for this patient x-ray right hand and right wrist. Patient received oxycodone 5 mg upon arrival to the emergency room if she has extensive allergies to NSAIDs. Re-evaluation: X-ray the right hand and right wrist reviewed. Shows no evidence of acute traumatic injury. Given the amount of tenderness she has on exam of her wrist and hand will splint in a sugar-tong splint. Will be splinted for comfort. Recommend she follows up with Orthopedics on outpatient basis. I do not visualize any acute fracture on her x-ray. These were interpreted independently by me. 0330: Patient in appropriate splint. Comfortable. However patient continues to ask me over and over again for oxycodone prescription. I have declined to give her this oxycodone prescription for a wrist and hand sprain. I do recommend splint, ice, elevation. Source: Patient - Personal History LMP (Females 10-55): 15-21 Days Ago Current Tetanus/Diphtheria Vaccine: Yes Current Tetanus Diphtheria and Acellular Pertussis (TDAP): Yes Tetanus Vaccine Date: 2010 - Medical/Surgical History Hx Asthma: No Hx Chronic Respiratory Disease: No Hx Diabetes: No Hx Cardiac Disease: No Hx Renal Disease: No Hx Cirrhosis: No Hx Alcoholism: No Hx HIV/AIDS: No Hx Splenectomy or Spleen Trauma: No Other PMH: PMHx: anxiety, ovarian cyst, fibroids, chronic pain. PSHx: bone marrow graft, tonsillectomy on 2014 - Social History Smoking Status: Never smoked Constitutional: Initial Vital Signs Temperature (C) 36.7 C 11/04/17 02:07 Heart Rate 120 H 11/04/17 02:07 Respiratory Rate 18 11/04/17 02:07 Blood Pressure 115/83 H 11/04/17 02:07 O2 Sat (%) 91 L 11/04/17 02:07 O2 Delivery Mode Room Air Allergies/Adverse Reactions: acetaminophen [From Tylenol Cold M-S Severe Daytim] Allergy (Verified 05/09/17 23:30) amoxicillin [Amoxicillin] Allergy (Verified 05/09/17 23:30) aspirin [Aspirin] Allergy (Verified 05/09/17 23:30) dexchlorpheniramine [Dexchlorpheniramine] Allergy (Verified 05/09/17 23:30) dextromethorphan HBr [From Tylenol Cold M-S Severe Daytim] Allergy (Verified 03/16 23:30) diphenhydramine HCl [From Benadryl] Allergy (Verified 05/09/17 23:30) erythromycin base [Erythromycin Base] Allergy (Verified 05/09/17 23:30) guaifenesin [From Tylenol Cold M-S Severe Daytim] Allergy (Verified 05/09/17 23: 30) ibuprofen [From Advil] Allergy (Verified 05/09/17 23:30) mushroom Allergy (Verified 05/09/17 23:30) Penicillins Allergy (Verified 05/09/17 23:30) phenylephrine HCl [From Tylenol Cold M-S Severe Daytim] Allergy (Verified 23:30) pseudoephedrine Allergy (Verified 05/09/17 23:30) pseudoephedrine HCl [From Sudafed] Allergy (Verified 05/09/17 23:30) Sulfa (Sulfonamide Antibiotics) Allergy (Verified 05/09/17 23:30) METHSCOLOLAMINE Allergy (Uncoded 08/08/10 13:30) Home Medications: Medication Instructions Recorded NK [No Known Home Meds] 11/04/17 Medical Decision Making - Data Points Medications Given: Discontinued Medications Ondansetron HCl (Zofran Odt) 4 mg PO EDNOW ONE Stop: 11/04/17 02:29 Last Admin: 11/04/17 02:29 Dose: 4 mg Oxycodone HCl (Oxycodone Ir) 5 mg PO EDNOW ONE Stop: 11/04/17 02:20 Last Admin: 11/04/17 02:26 Dose: 5 mg Departure - Departure Disposition: Home, Routine, Self-Care Clinical Impression: Wrist sprain Qualifiers: Encounter type: initial encounter Laterality: right Qualified Code(s): S63.501A - Unspecified sprain of right wrist, initial encounter Condition: Good Instructions: Wrist Sprain (ED) Additional Instructions: 1. Stay in your splint for comfort. 2. Follow up with Orthopedics. 3. Return emergency room if you have worsening symptoms questions or concerns. Referrals: NONE *PRIMARY CARE P,. [Primary Care Provider] - As per Instructions Mravel Rouse MD [Medical Doctor] - As per Instructions
== END 2017-11-04 03:44 | disposition home or self-care (01) ==
DX: S63.501A Unspecified sprain of right wrist, initial encounter (principal); X50.9XXA Other and unspecified overexertion or strenuous movements or postures, initial encounter; Y92.89 Other specified places as the place of occurrence of the external cause; Y99.8 Other external cause status; Y93.89 Activity, other specified
CPT/HCPCS: A4565

== ENCOUNTER 2018-05-26 01:48 | Emergency (ER) | payer MEDICAID ==
[2018-05-26] MEDS ORDERED: NS 1,000 ML IV ONE ×2 (02:35→03:42)
[2018-05-26] MEDS ORDERED: KETOROLAC 15 MG/1 ML SDV IVP ONE (02:35)
[2018-05-26] MEDS ORDERED: ONDANSETRON 4 MG/2 ML VIAL IVP ONE (02:35)
--- NOTE | 2018-05-26 02:41 | EDPHY ---
H & P Stated Complaint: RLQ pain with vomiting and diarrhea Time Seen by Provider: 05/26/18 02:07 HPI/ROS: HPI The patient presents with nausea, vomiting, diarrhea, right lower quadrant abdominal pain. Symptoms began 4 days ago with diarrhea and vomiting. Three days ago diarrhea had improved however vomiting continued and has persisted. She has limited ability to take anything by mouth because of ongoing nausea and vomiting. Today she developed stabbing right lower quadrant abdominal pain which has been constant, is worse when she walks or applies pressure to the area. She has not any vaginal bleeding. She has not tried any medications at home. She denies any sick contacts. REVIEW OF SYSTEMS 10 systems were reviewed and negative with the exception of the elements mentioned in the history of present illness. PMHx: History of ovarian cysts, chronic pain on outpatient pain medication, some concerns about opiate seeking behavior recorded on prior ER visits Soc Hx: Here with her PHYSICAL General Appearance: Alert, no distress Eyes: Pupils equal and round no pallor or injection ENT, Mouth: Mucous membranes moist Respiratory: There are no retractions, lungs are clear to auscultation Cardiovascular: Tachycardic rate and regular rhythm Gastrointestinal: Abdomen is soft and tender in the right lower quadrant without rebound or guarding, no masses, bowel sounds normal Neurological: A&O, moves all extremities Skin: Warm and dry, no rashes Musculoskeletal: Neck is supple non tender Extremities: symmetrical, full range of motion Psychiatric: Patient is oriented X 3, there is no agitation Source: Patient Exam Limitations: No limitations - Personal History LMP (Females 10-55): 8-14 Days Ago Current Tetanus/Diphtheria Vaccine: Yes Current Tetanus Diphtheria and Acellular Pertussis (TDAP): Yes Tetanus Vaccine Date: 2010 - Medical/Surgical History Hx Asthma: No Hx Chronic Respiratory Disease: No Hx Diabetes: No Hx Cardiac Disease: No Hx Renal Disease: No Hx Cirrhosis: No Hx Alcoholism: No Hx HIV/AIDS: No Hx Splenectomy or Spleen Trauma: No Other PMH: PMHx: anxiety, ovarian cyst, fibroids, chronic pain, right knee pain. PSHx: bone marrow graft, tonsillectomy on 2014 - Social History Smoking Status: Never smoked Constitutional: Initial Vital Signs Temperature (C) 36.6 C 05/26/18 01:49 Heart Rate 117 H 05/26/18 01:49 Respiratory Rate 16 05/26/18 01:49 Blood Pressure 140/95 H 05/26/18 01:49 O2 Sat (%) 93 05/26/18 01:49 O2 Delivery Mode Room Air Allergies/Adverse Reactions: acetaminophen [From Tylenol Cold M-S Severe Daytim] Allergy (Verified 05/26/18 01:52) amoxicillin [Amoxicillin] Allergy (Verified 05/26/18 01:52) aspirin [Aspirin] Allergy (Verified 05/26/18 01:52) dexchlorpheniramine [Dexchlorpheniramine] Allergy (Verified 05/26/18 01:52) dextromethorphan HBr [From Tylenol Cold M-S Severe Daytim] Allergy (Verified 01:52) diphenhydramine HCl [From Benadryl] Allergy (Verified 05/26/18 01:52) erythromycin base [Erythromycin Base] Allergy (Verified 05/26/18 01:52) guaifenesin [From Tylenol Cold M-S Severe Daytim] Allergy (Verified 05/26/18 01: 52) ibuprofen [From Advil] Allergy (Verified 05/26/18 01:52) mushroom Allergy (Verified 05/26/18 01:52) Penicillins Allergy (Verified 05/26/18 01:52) phenylephrine HCl [From Tylenol Cold M-S Severe Daytim] Allergy (Verified 01:52) pseudoephedrine Allergy (Verified 05/26/18 01:52) pseudoephedrine HCl [From Sudafed] Allergy (Verified 05/26/18 01:52) Sulfa (Sulfonamide Antibiotics) Allergy (Verified 05/26/18 01:52) METHSCOLOLAMINE Allergy (Uncoded 05/26/18 01:52) Home Medications: Medication Instructions Recorded Dilaudid 2 mg (*) 05/26/18 Gabapentin 05/26/18 Ondansetron Odt [Zofran Odt 4 mg 4 mg PO Q4 PRN #10 tab 05/26/18 (*)] Zofran Odt 4 mg (*) 05/26/18 Medical Decision Making - Diagnostics Imaging Results: Ultrasound right lower quadrant-no appendix is visualized. CT abdomen pelvis with contrast demonstrates mild wall thickening from cecum to the sigmoid colon compatible with remy colitis, hepatomegaly, mild wall thickening of the urinary bladder, large area of sclerosis of the proximal right femur, interpreted by direct Radiology. Imaging: I viewed and interpreted images myself Differential Diagnosis: This is a 32-year-old female with history of ovarian cyst, chronic pain, who presents from home with several days of nausea, vomiting, diarrhea. Today developing right lower quadrant stabbing abdominal pain. Differential diagnosis includes appendicitis, gastroenteritis, enterocolitis, less likely ovarian cyst. Plan for IV fluids, symptomatic relief, will avoid opiates given her history. Will perform basic labs as well as ultrasound to evaluate for possible appendicitis. Labs were relatively unremarkable, though UA did demonstrate blood, protein, ketones consistent with dehydration. Given that the patient does not have any irritative voiding symptoms, I will not treat her as UTI. Her pain and symptoms improved somewhat with fluids. On reassessment, she had ongoing tenderness of her abdomen. Right lower quadrant ultrasound was nondiagnostic. We decided to proceed with CT scan which does show mild pancolitis. As I suspect this is the cause of her symptoms. This is likely led to dehydration. She received a 2nd L of fluid. She received Phenergan. She felt better after this. I will discharge her home with antiemetics and instructions for ongoing hydration. She is happy with this plan. - Data Points Laboratory Results: Laboratory Results 05/26/18 02:20 05/26/18 02:20 05/26/18 05/26/18 05/26/18 04:55 02:20 02:20 WBC RBC Hgb Hct MCV MCH MCHC RDW Plt Count MPV Neut % (Auto) Lymph % (Auto) [place] % (Auto) Eos % (Auto) Baso % (Auto) Nucleat RBC Rel Count Absolute Neuts (auto) Absolute Lymphs (auto) Absolute Monos (auto) Absolute Eos (auto) Absolute Basos (auto) Absolute Nucleated RBC Immature Gran % Immature Gran # Sodium 137 mEq/L mEq/L (135-145) Potassium 4.4 mEq/L mEq/L (3.5-5.2) Chloride 104 mEq/L mEq/L (97-110) Carbon Dioxide 22 mEq/l mEq/l (22-31) Anion Gap 11 mEq/L mEq/L (6-14) BUN 13 mg/dL mg/dL (7-23) Creatinine 0.6 mg/dL mg/dL (0.6-1.0) Estimated GFR > 60 Glucose 88 mg/dL mg/dL (70-100) Calcium 9.5 mg/dL mg/dL (8.5-10.4) Total Bilirubin 0.6 mg/dL mg/dL (0.1-1.4) AST 25 IU/L IU/L (14-46) ALT 24 IU/L IU/L (9-52) Alkaline Phosphatase 77 IU/L IU/L (38-126) Total Protein 8.3 g/dL H g/dL (6.3-8.2) Albumin 4.9 g/dL g/dL (3.5-5.0) Beta HCG, Qual NEGATIVE Urine Color YELLOW Urine Appearance HAZY Urine pH 5.0 (5.0-7.5) Ur Specific [place] 1.032 H (1.002-1.030) Urine Protein 2+ H (NEGATIVE) Urine Ketones 2+ H (NEGATIVE) Urine Blood 1+ H (NEGATIVE) Urine Nitrate NEGATIVE (NEGATIVE) Urine Bilirubin NEGATIVE (NEGATIVE) Urine Urobilinogen 2.0 EU H EU (0.2-1.0) Ur Leukocyte Esterase NEGATIVE (NEGATIVE) Urine RBC 5-10 /hpf H /hpf (0-3) Urine WBC 3-5 /hpf H /hpf (0-3) Ur Epithelial Cells TRACE /lpf /lpf (NONE-1+) Urine Mucus 4+ /lpf H /lpf (NONE-1+) Urine Glucose NEGATIVE (NEGATIVE) Urine Opiates Screen NON-NEGATIVE H (NEGATIVE) Urine Barbiturates NEGATIVE (NEGATIVE) Ur Phencyclidine Scrn NEGATIVE (NEGATIVE) Ur Amphetamine Screen NEGATIVE (NEGATIVE) U Benzodiazepines Scrn NEGATIVE (NEGATIVE) Urine Cocaine Screen NON-NEGATIVE H (NEGATIVE) U Marijuana (THC) Screen NEGATIVE (NEGATIVE) 05/26/18 02:20 WBC 10.08 10^3/uL H 10^3/uL (3.80-9.50) RBC 4.65 10^6/uL 10^6/uL (4.18-5.33) Hgb 14.5 g/dL g/dL (12.6-16.3) Hct 41.5 % % (38.0-47.0) MCV 89.2 fL fL (81.5-99.8) MCH 31.2 pg pg (27.9-34.1) MCHC 34.9 g/dL g/dL (32.4-36.7) RDW 13.7 % % (11.5-15.2) Plt Count 279 10^3/uL 10^3/uL (150-400) MPV 9.0 fL fL (8.7-11.7) Neut % (Auto) 67.5 % % (39.3-74.2) Lymph % (Auto) 24.5 % % (15.0-45.0) [place] % (Auto) 6.3 % % (4.5-13.0) Eos % (Auto) 0.4 % L % (0.6-7.6) Baso % (Auto) 1.1 % % (0.3-1.7) Nucleat RBC Rel Count 0.0 % % (0.0-0.2) Absolute Neuts (auto) 6.81 10^3/uL H 10^3/uL (1.70-6.50) Absolute Lymphs (auto) 2.47 10^3/uL 10^3/uL (1.00-3.00) Absolute Monos (auto) 0.63 10^3/uL 10^3/uL (0.30-0.80) Absolute Eos (auto) 0.04 10^3/uL 10^3/uL (0.03-0.40) Absolute Basos (auto) 0.11 10^3/uL H 10^3/uL (0.02-0.10) Absolute Nucleated RBC 0.00 10^3/uL 10^3/uL (0-0.01) Immature Gran % 0.2 % % (0.0-1.1) Immature Gran # 0.02 10^3/uL 10^3/uL (0.00-0.10) Sodium Potassium Chloride Carbon Dioxide Anion Gap BUN Creatinine Estimated GFR Glucose Calcium Total Bilirubin AST ALT Alkaline Phosphatase Total Protein Albumin Beta HCG, Qual Urine Color Urine Appearance Urine pH Ur Specific [place] Urine Protein Urine Ketones Urine Blood Urine Nitrate Urine Bilirubin Urine Urobilinogen Ur Leukocyte Esterase Urine RBC Urine WBC Ur Epithelial Cells Urine Mucus Urine Glucose Urine Opiates Screen Urine Barbiturates Ur Phencyclidine Scrn Ur Amphetamine Screen U Benzodiazepines Scrn Urine Cocaine Screen U Marijuana (THC) Screen Medications Given: Discontinued Medications Sodium Chloride (Ns) 1,000 mls @ 0 mls/hr IV EDNOW ONE; Wide Open PRN Reason: Protocol Stop: 05/26/18 02:36 Last Admin: 05/26/18 02:38 Dose: 1,000 mls Sodium Chloride (Ns) 1,000 mls @ 0 mls/hr IV ONCE ONE; Wide Open PRN Reason: Protocol Stop: 05/26/18 03:43 Last Admin: 05/26/18 03:50 Dose: 1,000 mls Ketorolac Tromethamine (Toradol) 15 mg IVP EDNOW ONE Stop: 05/26/18 02:36 Last Admin: 05/26/18 02:38 Dose: 15 mg Ondansetron HCl (Zofran) 4 mg IVP EDNOW ONE Stop: 05/26/18 02:36 Last Admin: 05/26/18 02:38 Dose: 4 mg Promethazine HCl (Phenergan) 12.5 mg IVP ONCE ONE Stop: 05/26/18 04:58 Last Admin: 05/26/18 05:03 Dose: 12.5 mg Departure - Departure Disposition: Home, Routine, Self-Care Clinical Impression: Nausea vomiting and diarrhea, Colitis Condition: Good Instructions: Infectious Colitis (ED) Additional Instructions: Please make sure to drink plenty of fluids. You should start by drinking small frequent amounts of clear fluids and then you can start to try larger quantities if your feeling better. Please return to the ER if your worse in any way. Referrals: [facility],. [Clinic] - As per Instructions Prescriptions: Ondansetron Odt [Zofran Odt 4 mg (*)] 4 mg PO Q4 PRN #10 tab PRN Reason: Nausea/Vomiting, Can'T Take Po
[2018-05-26 02:43] LABS: PLATELET COUNT 279 10^3/uL (150-400)
[2018-05-26] MEDS ORDERED: IOHEXOL 350mgI/ML (OMNIPAQUE) 150 ML BTL IV ONE (04:51)
[2018-05-26] MEDS ORDERED: PROMETHAZINE HCL 25 MG/ML INJ IVP ONE (04:57)
[2018-05-26 06:18] VITALS: BP 115/80
== END 2018-05-26 06:40 | disposition home or self-care (01) ==
DX: R11.2 Nausea with vomiting, unspecified (principal); R19.7 Diarrhea, unspecified; K52.9 Noninfective gastroenteritis and colitis, unspecified; E86.9 Volume depletion, unspecified
CPT/HCPCS: 80305; 96374; J1885; J2405; J2550; Q9967

== ENCOUNTER 2018-07-27 22:08 | Emergency (ER) | payer MEDICAID ==
--- NOTE | 2018-07-27 23:16 | EDPHY ---
H & P Stated Complaint: chest pain, LLQ pain, cought and N/V Time Seen by Provider: 07/27/18 22:22 HPI/ROS: Chief Complaint: Difficulty breathing, wheezing, abdominal pain HPI: 32-year-old woman presenting complaining of an episode of wheezing and difficulty breathing. Patient states [place] She she had worsening difficulty breathing and sensation she could not breathe. Mom brought here right away. Patient is also complaining of bilateral back pain and right lower abdominal pain. Patient states that she was seen at a [facility] several days ago for a similar episode of difficulty breathing and wheezing. She says at that time she did not have any abdominal pain. She was told that she had some possible abnormality on her chest x-ray and says that she was given a prescription for antibiotics. She denies smoking. Does admit to drinking alcohol tonight. Denies any other recreational drug use. Does use clonazepam as needed for anxiety and did take 1 tonight. Also uses Dilaudid as needed for chronic pain in her right leg status post a bone cyst with grafting. Denies any fevers or chills. Denies cough. Says that her breathing feels better now. Patient is speaking in full sentences and has no respiratory distress. ROS: 10 systems were reviewed and were negative except those elements noted in the HPI. PMH: Chronic leg pain, anxiety Social History: No smoking, occasional alcohol, no recreational drug use Family History: non-contributory Physical Exam: Gen: Awake, Alert, No Distress HEENT: Nose: no rhinorrhea Eyes: PERRLA, EOMI Mouth: Moist mucosa Neck: Supple, no JVD Chest: nontender, lungs clear to auscultation Heart: S1, S2 normal, no murmur Abd: Soft, non-tender, no guarding Back: no CVA tenderness, no midline tenderness Ext: no edema, non-tender Skin: no rash Neuro: CN II-XII intact, Sensation grossly intact, Strength 5/5 in bilateral upper and lower extremities - Personal History LMP (Females 10-55): 8-14 Days Ago Tetanus Vaccine Date: 2010 - Medical/Surgical History Hx Asthma: No Hx Chronic Respiratory Disease: No Hx Diabetes: No Hx Cardiac Disease: No Hx Renal Disease: No Hx Cirrhosis: No Hx Alcoholism: No Hx HIV/AIDS: No Hx Splenectomy or Spleen Trauma: No Other PMH: PMHx: anxiety, ovarian cyst, fibroids, chronic pain, right knee pain. PSHx: bone marrow graft, tonsillectomy on 2015 - Social History Smoking Status: Never smoked Constitutional: Initial Vital Signs Temperature (C) 37.0 C 07/27/18 22:13 Heart Rate 133 H 07/27/18 22:13 Respiratory Rate 20 07/27/18 22:13 Blood Pressure 94/82 H 07/27/18 22:13 O2 Sat (%) 95 07/27/18 22:13 O2 Delivery Mode Room Air Allergies/Adverse Reactions: acetaminophen [From Tylenol Cold M-S Severe Daytim] Allergy (Verified 07/27/18 22:12) amoxicillin [Amoxicillin] Allergy (Verified 07/27/18 22:12) aspirin [Aspirin] Allergy (Verified 07/27/18 22:12) dexchlorpheniramine [Dexchlorpheniramine] Allergy (Verified 07/27/18 22:12) dextromethorphan HBr [From Tylenol Cold M-S Severe Daytim] Allergy (Verified 22:12) diphenhydramine HCl [From Benadryl] Allergy (Verified 07/27/18 22:12) erythromycin base [Erythromycin Base] Allergy (Verified 07/27/18 22:12) guaifenesin [From Tylenol Cold M-S Severe Daytim] Allergy (Verified 07/27/18 22: 12) ibuprofen [From Advil] Allergy (Verified 07/27/18 22:12) mushroom Allergy (Verified 07/27/18 22:12) Penicillins Allergy (Verified 07/27/18 22:12) phenylephrine HCl [From Tylenol Cold M-S Severe Daytim] Allergy (Verified 22:12) pseudoephedrine Allergy (Verified 07/27/18 22:12) pseudoephedrine HCl [From Sudafed] Allergy (Verified 07/27/18 22:12) Sulfa (Sulfonamide Antibiotics) Allergy (Verified 07/27/18 22:12) METHSCOLOLAMINE Allergy (Uncoded 07/27/18 22:12) Home Medications: Medication Instructions Recorded Dilaudid 2 mg (*) 05/26/18 Gabapentin 05/26/18 Ondansetron Odt [Zofran Odt 4 mg 4 mg PO Q4 PRN #10 tab 05/26/18 (*)] Zofran Odt 4 mg (*) 05/26/18 Medical Decision Making ED Course/Re-evaluation: I reviewed the patient's records in [facility]. She was seen twice on the 26 of this month, 5 days ago. First visit was at [facility]. Second visit was at a [facility]. For those visits she was complaining of lower abdominal pain. She was also requesting narcotics and stated that she had run out of her prescription. She had full blood work, urinalysis, and CT scan of the abdomen. Appendix was not visualized but there are no secondary findings suggestive of appendicitis in the studies were otherwise unremarkable. Patient was seen at a [facility] had a KUB which showed some stool. She also has showed some mild left lower atelectasis verses questionable early infiltrate on chest x-ray. Patient was again exhibiting drug-seeking behavior at that time. It is also noted the patient was positive for cocaine at the [facility] ER. There is no documentation at either of those visits of a complaint of difficulty breathing cough or shortness of breath. I have discussed these findings and reports with the patient. She is providing with multiple different stories at this time. She says that she did complain of shortness of breath there and was told she had abnormality or chest x-ray. I explained these findings to her. I have explained that her visits to multiple ERs within the week is concerning and that typically if he had a return of symptoms return to the hospital your seen as they have your records. I have reassured her that at this time her respiratory exam is completely normal. She has normal oxygenation. She is not tachypneic. She does appear anxious but is calm down. Lungs are clear to auscultation. I have explained that with the chronic abdominal pain she has been having with no new findings and a recent normal CT scan that I do not recommend further scanning at this time she should follow up with primary care. Patient states she would prefer to leave and return to a [facility] if that is my recommendation. I have explained to her that I am very happy to evaluate and treat her in this emergency department , I just explained that I have concerns about the inconsistencies with what she is telling me and what I am seeing in the medical records. Patient states she does not wish to be treated here any further and that she would like to leave against medical advice and be seen elsewhere. I have explained that this is the patient's parotid give. I have explained that she is welcome to return at any time. Departure - Departure Disposition: Against Medical Advice Clinical Impression: Abdominal pain, Dyspnea Condition: Good Instructions: Abdominal Pain (ED) Additional Instructions: Please return to the emergency department for any concerns. Referrals: NONE *PRIMARY CARE P,. [Primary Care Provider] - As per Instructions
[2018-07-27 23:28] VITALS: BP 104/81
== END 2018-07-27 23:26 | disposition left against medical advice (07) ==
DX: R10.32 Left lower quadrant pain (principal); R06.00 Dyspnea, unspecified; F41.9 Anxiety disorder, unspecified; Z79.899 Other long term (current) drug therapy

== ENCOUNTER → 2018-10-08 | Outpatient (CLI) | payer MEDICAID | LOC: FIMAGING 18:47 ==

== ENCOUNTER 2018-10-19 03:53 | Emergency (ER) | payer MEDICAID | END 2018-10-19 05:12 | disposition home or self-care (01) ==